=== PATIENT | male | born 1960 | race Two or more races ===

== ENCOUNTER 2019-03-26 13:47 | Emergency (ER) | payer MEDICAID ==
[2019-03-26] MEDS ORDERED: Ketorolac 60 MG/2 ML SDV IM ONE (14:37)
--- NOTE | 2019-03-26 15:27 | CR ---
EXAMINATION: Lumbar spine HISTORY: Pain COMPARISON: None TECHNIQUE: AP and lateral views FINDINGS: The lumbar spinal alignment is normal. Vertebral body heights and disc spaces appear well-maintained. SI joints are symmetric. Bone mineralization is normal. Mild vascular calcifications. IMPRESSION: 1. Minimal degenerative changes without acute findings.
--- NOTE | 2019-03-26 15:30 | CR ---
EXAMINATION: Right shoulder HISTORY: Pain COMPARISON: None TECHNIQUE: 3 views FINDINGS/IMPRESSION: There is no acute osseous abnormality, dislocation, or fracture. Bone mineralization is preserved. Moderate acromioclavicular and minimal glenohumeral osteoarthritic changes.
--- NOTE | 2019-03-26 16:06 | EDM.PDOC ---
ED HPI GENERAL MEDICAL PROBLEM - General Chief Complaint: Back Pain or Injury Stated Complaint: BACK AND SHOULDER PAIN Time Seen by Provider: 03/26/19 14:25 Source of Information: Reports: Patient History Limitations: Reports: No Limitations - History of Present Illness INITIAL COMMENTS - FREE TEXT/NARRATIVE: Since to the ER reporting chronic back pain. The patient states that about 3 months ago he fell and sustained a head injury, some back pain and shoulder pain. He was hospitalized for 3 days and discharged. He is scheduled to go to physical therapy on 04/21/2019. Now he has some back pain but he does not see anyone in primary care and is wondering about his shoulder and his leg and his trigger finger and so forth. We will check out his low back and shoulder today. right shoulder Pain Score (Numeric/FACES): 4 - Related Data Allergies Allergy/AdvReac Type Severity Reaction Status Date / Time No Known Allergies Allergy Verified 03/26/19 13:59 Home Meds: Home Meds Cyclobenzaprine [Flexeril] 1 tab PO TID PRN #20 tab 03/26/19 [Rx] Diclofenac Sodium [Voltaren] 75 mg PO BIDMEALS PRN #20 tab.ec 03/26/19 [Rx] Dizziness Medication 1 tab PO DAILY 03/26/19 [History] metFORMIN HCl [Metformin HCl] 1,000 mg PO BID 03/26/19 [History] Past Medical History HEENT History: Reports: None Cardiovascular History: Reports: None Respiratory History: Reports: None Gastrointestinal History: Reports: None Genitourinary History: Reports: None Musculoskeletal History: Reports: None Neurological History: Reports: None Psychiatric History: Reports: None Endocrine/Metabolic History: Reports: None Hematologic History: Reports: None Immunologic History: Reports: None Oncologic (Cancer) History: Reports: None Dermatologic History: Reports: None - Past Surgical History Head Surgeries/Procedures: Reports: None Cardiovascular Surgical History: Reports: None Respiratory Surgical History: Reports: None GI Surgical History: Reports: None Male Surgical History: Reports: None Endocrine Surgical History: Reports: None Neurological Surgical History: Reports: None Musculoskeletal Surgical History: Reports: None Oncologic Surgical History: Reports: None Dermatological Surgical History: Reports: None Social & Family History - Family History Family Medical History: Noncontributory - Tobacco Use Smoking Status *Q: Never Smoker Second Hand Smoke Exposure: No - Caffeine Use Caffeine Use: Reports: None - Recreational Drug Use Recreational Drug Use: No ED ROS GENERAL - Review of Systems Review Of Systems: See Below Constitutional: Reports: No Symptoms. Denies: Fever, Chills HEENT: Reports: No Symptoms Respiratory: Reports: No Symptoms Cardiovascular: Reports: No Symptoms Endocrine: Reports: No Symptoms GI/Abdominal: Reports: No Symptoms : Reports: Other (No bowel or bladder incontinence) Musculoskeletal: Reports: No Symptoms Skin: Reports: No Symptoms Neurological: Reports: No Symptoms Psychiatric: Reports: No Symptoms Hematologic/Lymphatic: Reports: No Symptoms Immunologic: Reports: No Symptoms ED EXAM,LOWER BACK PAIN/INJURY - Physical Exam Exam: See Below General Appearance: Alert, No Apparent Distress, Other (Uncomfortable sitting, is walking around in the exam room) Ears: Normal External Exam Nose: Normal Inspection Throat/Mouth: Normal Inspection Head: Atraumatic, Normocephalic Neck: Normal Inspection Respiratory/Chest: No Respiratory Distress, Lungs Clear, Normal Breath Sounds Cardiovascular: Normal Peripheral Pulses, Regular Rate, Rhythm, No Murmur GI/Abdominal: Soft Back Exam: Normal Inspection, Muscle Spasm (Across lower back with tenderness to palpation) Extremities: Normal Inspection, Normal Range of Motion Neurological: Alert, Normal Mood/Affect Psychiatric: Normal Affect, Normal Mood Skin Exam: Warm, Dry, Intact, Normal Color, No Rash Lymphatic: No Adenopathy Course - Vital Signs Last Recorded V/S: Last Vital Signs Temp 35.6 C 03/26/19 14:00 Pulse 88 03/26/19 14:00 Resp 18 03/26/19 14:00 BP 158/101 H 03/26/19 14:00 Pulse Ox 98 03/26/19 14:00 - Orders/Labs/Meds Meds: Medications Discontinued Medications Generic Name Dose Route Start Last Admin Trade Name Freq PRN Reason Stop Dose Admin Ketorolac Tromethamine 60 mg 03/26/19 14:37 03/26/19 15:12 Toradol IM 03/26/19 14:38 60 mg ONETIME ONE Administration Departure - Departure Time of Disposition: 16:06 Disposition: Home, Self-Care 01 Condition: Good Clinical Impression: Arthritis, Muscle spasm - Discharge Information Instructions: Musculoskeletal Pain, Chronic Back Pain, [id number] Forms: ED Department Discharge Additional Instructions: 1. Please make an appointment in primary care to discuss your chronic medical problems 2. Muscle relaxant (Cyclobenzaprine) every 8 hours as needed. No driving or operating machinery. 3. Diclofenac every 12 hours as needed for pain.
== END 2019-03-26 16:30 | disposition home or self-care (01) ==
LOC: MW.ED 13:47
DX: M62.830 Muscle spasm of back (principal); M19.011 Primary osteoarthritis, right shoulder
CPT/HCPCS: 72100; 73030; 96372; 99283; J1885

== ENCOUNTER 2019-07-19 15:54 | Emergency (ER) | payer MEDICAID ==
[2019-07-19] MEDS ORDERED: Ketorolac 60 MG/2 ML SDV IM ONE (18:08)
--- NOTE | 2019-07-19 18:08 | EDM.PDOC ---
ED HPI GENERAL MEDICAL PROBLEM - General Chief Complaint: Upper Extremity Injury/Pain Stated Complaint: INJURED HAND Time Seen by Provider: 07/19/19 17:04 Source of Information: Reports: Patient History Limitations: Reports: No Limitations - History of Present Illness INITIAL COMMENTS - FREE TEXT/NARRATIVE: HISTORY AND PHYSICAL: History of present illness: Patient is a 58-year-old male who presents to the ED today for concern of the surgical incision being painful. Patient states on 07/04/2019 he had a laceration of his finger on his right hand which required a tendon to be repaired. Patient states he had surgery done by Dr. James hand specialist at [facility] in [place], in order to repair the tendon. Patient states following the surgery he had an issue with infection of the surgery site and was admitted to the hospital at [facility] for 5 days. Patient states he is unsure when he was discharged but he followed up [address] James who thought the wound was looking better and instructed patient to continue to use packing. Patient states he's also been using alcohol and hydrogen peroxide inside the packing wound. Patient states he is taking antibiotics still and does his own packing/ repacking of the wound by himself as instructed by Dr. James. Patient states that when he saw the hand specialist he did not have much pain over the past couple days has had increased throbbing sensation of the packing area. Patient denies any other symptoms or concerns at this time. Patient denies fever, chills, chest pain, shortness of breath, or cough. Denies headache, neck stiff ness, change in vision, syncope, or near syncope. Denies nausea, vomiting, abdominal pain, diarrhea, constipation, or dysuria. Has not noted any blood in urine or stool. Patient has been eating and drinking appropriately. Review of systems: As per history of present illness and below otherwise all systems reviewed and negative. Past medical history: As per history of present illness and as reviewed below otherwise noncontributory. Surgical history: As per history of present illness and as reviewed below otherwise noncontributory. Social history: See social history for further information Family history: As per history of present illness and as reviewed below otherwise noncontributory. Physical exam: General: Patient is alert, oriented, and in no acute distress. Patient sitting comfortably on exam table. HEENT: Atraumatic, normocephalic, pupils equal and reactive bilaterally, negative for conjunctival pallor or scleral icterus, mucous membranes moist, TMs normal bilaterally, throat clear, neck supple, nontender, trachea midline. No drooling or trismus noted. No meningeal signs. No hot potato voice noted. Lungs: Clear to auscultation, breath sounds equal bilaterally, chest nontender. Heart: S1S2, regular rate and rhythm without overt murmur Abdomen: Soft, nondistended, nontender. Negative for masses or hepatosplenomegaly. Negative for costovertebral tenderness. Pelvis: Stable nontender. Genitourinary: Deferred. Rectal: Deferred. Skin: Intact, warm, dry. No lesions or rashes noted. Extremities: Negative for cords or calf pain. Neurovascular unremarkable. There is a 3-4 cm incision of the volar third digit of the right hand which does have suturing at the most proximal and most distal area of the incision. The central area of the incision is open and packed. There is no erythema of this area for drainage from the wound. There is white granulation tissue surrounding the central area that is open and packed. Patient has full range of motion of the complete hand and wrist without pain or difficulty. Radial pulses grossly intact with capillary refill less than 2 seconds. Neuro: Awake, alert, oriented. Cranial nerves II through XII unremarkable. Cerebellum unremarkable. Motor and sensory unremarkable throughout. Exam nonfocal. Notes: Dr. Sanchez verbally involved in patient care. Voices understanding and is agreeable to plan of care. Denies any further questions or concerns at this time. Diagnostics: CBC, Hand XR Therapeutics: Toradol Prescription: None Impression: Post operational pain management Medical screening exam Plan: 1. Follow up with Dr. James as scheduled and as discussed. Continue to take antibiotics that have been prescribed to you. 2. You can alternate ibuprofen and Tylenol as directed for pain and discomfort. 3. Return to the ED as needed and as discussed. Definitive disposition and diagnosis as appropriate pending reevaluation and review of above. Right Finger-Middle Pain Score (Numeric/FACES): 3 - Related Data Allergies Allergy/AdvReac Type Severity Reaction Status Date / Time No Known Allergies Allergy Verified 07/19/19 16:46 Home Meds: Home Meds . [Unable to Verify Home Med List] 07/19/19 [History] Past Medical History HEENT History: Reports: None Cardiovascular History: Reports: None Respiratory History: Reports: None Gastrointestinal History: Reports: None Genitourinary History: Reports: None Musculoskeletal History: Reports: None Neurological History: Reports: None Psychiatric History: Reports: None Endocrine/Metabolic History: Reports: None Hematologic History: Reports: None Immunologic History: Reports: None Oncologic (Cancer) History: Reports: None Dermatologic History: Reports: None - Past Surgical History Head Surgeries/Procedures: Reports: None Cardiovascular Surgical History: Reports: None Respiratory Surgical History: Reports: None GI Surgical History: Reports: None Male Surgical History: Reports: None Endocrine Surgical History: Reports: None Neurological Surgical History: Reports: None Musculoskeletal Surgical History: Reports: Other (See Below) Other Musculoskeletal Surgeries/Procedures:: right hand surgery Oncologic Surgical History: Reports: None Dermatological Surgical History: Reports: None Social & Family History - Family History Family Medical History: Noncontributory - Tobacco Use Smoking Status *Q: Never Smoker - Caffeine Use Caffeine Use: Reports: None - Recreational Drug Use Recreational Drug Use: No Review of Systems - Review of Systems Review Of Systems: ROS reveals no pertinent complaints other than HPI. ED EXAM, GENERAL - Physical Exam Exam: See Below (See dictation) Course - Vital Signs Last Recorded V/S: Last Vital Signs Temp Pulse 105 H 07/19/19 16:58 Resp BP 157/104 H 07/19/19 16:58 Pulse Ox 96 07/19/19 16:58 - Orders/Labs/Meds Labs: Laboratory Tests 07/19/19 Range/Units 17:48 WBC 8.98 (4.0-11.0) K/uL RBC 5.11 (4.50-5.90) M/uL Hgb 15.9 (13.0-17.0) g/dL Hct 44.3 (38.0-50.0) % MCV 86.7 (80.0-98.0) fL MCH 31.1 (27.0-32.0) pg MCHC 35.9 (31.0-37.0) g/dL RDW Std Deviation 40.3 (28.0-62.0) fl RDW Coeff of Talon 13 (11.0-15.0) % Plt Count 180 (150-400) K/uL MPV 10.30 (7.40-12.00) fL Neut % (Auto) 66.2 (48.0-80.0) % Lymph % (Auto) 23.2 (16.0-40.0) % [place] % (Auto) 8.7 (0.0-15.0) % Eos % (Auto) 1.3 (0.0-7.0) % Baso % (Auto) 0.6 (0.0-1.5) % Neut # (Auto) 6.0 H (1.4-5.7) K/uL Lymph # (Auto) 2.1 (0.6-2.4) K/uL [place] # (Auto) 0.8 (0.0-0.8) K/uL Eos # (Auto) 0.1 (0.0-0.7) K/uL Baso # (Auto) 0.1 (0.0-0.1) K/uL Nucleated RBC % 0.0 /100WBC Nucleated RBCs # 0 K/uL Meds: Medications Discontinued Medications Generic Name Dose Route Start Last Admin Trade Name Freq PRN Reason Stop Dose Admin Ketorolac Tromethamine 60 mg 07/19/19 18:08 07/19/19 18:42 Toradol IM 07/19/19 18:09 60 mg ONETIME ONE Administration Departure - Departure Time of Disposition: 19:09 Disposition: Home, Self-Care 01 Clinical Impression: Post-op pain, Encounter for medical screening examination - Discharge Information Referrals: PCP,None [Primary Care Provider] - Forms: ED Department Discharge Additional Instructions: The following information is given to patients seen in the emergency department who are being discharged to home. This information is to outline your options for follow-up care. We provide all patients seen in our emergency department with a follow-up referral. The need for follow-up, as well as the timing and circumstances, are variable depending upon the specifics of your emergency department visit. If you don't have a primary care physician on staff, we will provide you with a referral. We always advise you to contact your personal physician following an emergency department visit to inform them of the circumstance of the visit and for follow-up with them and/or the need for any referrals to a consulting specialist. The emergency department will also refer you to a specialist when appropriate. This referral assures that you have the opportunity for follow-up care with a specialist. All of these measure are taken in an effort to provide you with optimal care, which includes your follow-up. Under all circumstances we always encourage you to contact your private physician who remains a resource for coordinating your care. When calling for follow-up care, please make the office aware that this follow-up is from your recent emergency room visit. If for any reason you are refused follow-up, please contact the [facility] Emergency Department at and asked to speak to the emergency department charge nurse. [facility] [address] [place] [address] [id number] [address] [facility], Hand and Wrist Surgery, Dr. James [address] [place] [address] [place] [address] PH: [phone] 1. Follow up with Dr. James as scheduled and as discussed. Continue to take antibiotics that have been prescribed to you. 2. You can alternate ibuprofen and Tylenol as directed for pain and discomfort. 3. Return to the ED as needed and as discussed.
--- NOTE | 2019-07-19 18:52 | CR ---
Indication: Third digit wound, rule out gas Technique: Three views of the right hand Comparison: None Findings/Impression: Focal defect is seen in the ventral skin of the 3rd digit at the level of the proximal MTP joint, consistent with laceration. There is mild underlying subcutaneous edema without any appreciable soft tissue emphysema. There is no fracture or osseous destruction. The joints are anatomically aligned. Dictated by Sunny Nix MD @ Jul 19 2019 6:51PM Signed by Dr. Sunny Nix @ Jul 19 2019 6:51PM
== END 2019-07-19 19:49 | disposition home or self-care (01) ==
LOC: MW.ED 15:54
DX: Z04.89 Encounter for examination and observation for other specified reasons (principal); G89.18 Other acute postprocedural pain
CPT/HCPCS: 36415; 73130; 85025; 96372; 99283; J1885

== ENCOUNTER 2019-10-17 14:21 | Emergency (ER) | payer MEDICAID ==
[2019-10-17] MEDS ORDERED: Ketorolac 30 MG/ML SDV IVPUSH ONE (15:00)
[2019-10-17] MEDS ORDERED: Sodium Chloride 0.9% 1,000 ML IV ONE ×2 (15:00→15:37)
[2019-10-17 15:18] LABS: BLOOD UREA NITROGEN,BUN 14 mg/dL (7.0-18.0); CARBON DIOXIDE,CO2 27.5 mmol/L (21.0-32.0); CHLORIDE,CL 97 mmol/L (98-107); GLUCOSE RANDOM 429 mg/dL (74-106); POTASSIUM,K 4.4 mmol/L (3.5-5.1); SODIUM,NA 134 mmol/L (136-148)
[2019-10-17] MEDS ORDERED: Insulin Regular, Human 100 Units/ML 10 ML Vial IVPUSH ONE (15:38)
--- NOTE | 2019-10-17 15:53 | CR ---
Chest: Portable view of the chest was obtained. Comparison: No prior chest x-ray. Heart size and mediastinum are normal. Slight atelectasis is seen off the left cardiac apex. Poor inspiratory study is noted. No acute parenchymal change is otherwise seen. Bony structures are grossly intact. Impression: 1. Poor inspiratory study. 2. Minimal atelectasis. 3. Nothing acute is seen. Diagnostic code #2 This report was dictated in Mountain Standard Time
--- NOTE | 2019-10-17 17:26 | EDM.PDOC ---
ED HPI GENERAL MEDICAL PROBLEM - General Chief Complaint: Chest Pain Stated Complaint: CHEST PAIN WHEN HE BREATHES Time Seen by Provider: 10/17/19 14:47 - History of Present Illness INITIAL COMMENTS - FREE TEXT/NARRATIVE: Left anterior chest wall pain with movement x3 days, denies any shortness of breath denies any nausea vomiting syncope patient denies any trauma pain is increased with movement of the chest change in body position and direct palpation. No change with inspiration and denies any nausea vomiting abdominal pain patient denies any syncope patient is [id number] diabetic but has not checked his blood sugar in days. Unsure of his compliance with medication he denies any other significant past medical history denies any leg swelling denies any history of DVT denies any cardiac history denies any fever chills productive cough patient denies smoking or alcohol abuse pain is fully reproducible with range of motion and movement of the left arm. And patient denies any headache visual disturbance headache or stiff neck left chest Pain Score (Numeric/FACES): 6 - Related Data Allergies Allergy/AdvReac Type Severity Reaction Status Date / Time No Known Allergies Allergy Verified 10/17/19 14:29 Home Meds: Home Meds Ibuprofen [Motrin] 600 mg PO Q8H PRN 7 Days #21 tab 10/17/19 [Rx] levETIRAcetam [Keppra] 500 mg PO BID 10/17/19 [History] metFORMIN [Glucophage XR] 1,000 mg PO BID 10/17/19 [History] Past Medical History HEENT History: Reports: None Cardiovascular History: Reports: None Respiratory History: Reports: None Gastrointestinal History: Reports: None Genitourinary History: Reports: None Musculoskeletal History: Reports: None Neurological History: Reports: Other (See Below) Other Neuro History: possible seizure Psychiatric History: Reports: None Endocrine/Metabolic History: Reports: Diabetes, Type II Hematologic History: Reports: None Immunologic History: Reports: None Oncologic (Cancer) History: Reports: None Dermatologic History: Reports: Psoriasis - Past Surgical History Head Surgeries/Procedures: Reports: None Cardiovascular Surgical History: Reports: None Respiratory Surgical History: Reports: None GI Surgical History: Reports: None Male Surgical History: Reports: None Endocrine Surgical History: Reports: None Neurological Surgical History: Reports: None Musculoskeletal Surgical History: Reports: Other (See Below) Other Musculoskeletal Surgeries/Procedures:: right hand surgery Oncologic Surgical History: Reports: None Dermatological Surgical History: Reports: None Social & Family History - Family History Family Medical History: Noncontributory - Tobacco Use Smoking Status *Q: Never Smoker - Caffeine Use Caffeine Use: Reports: None - Recreational Drug Use Recreational Drug Use: No ED ROS GENERAL - Review of Systems Review Of Systems: Comprehensive ROS is negative, except as noted in HPI. Constitutional: Reports: No Symptoms HEENT: Reports: No Symptoms Respiratory: Reports: No Symptoms Cardiovascular: Reports: Chest Pain GI/Abdominal: Reports: No Symptoms, Other (Good appetite with out abdominal pain ). Denies: Abdominal Pain Musculoskeletal: Reports: No Symptoms Skin: Reports: No Symptoms Neurological: Reports: No Symptoms Psychiatric: Reports: No Symptoms ED EXAM, GENERAL - Physical Exam Exam: See Below Exam Limited By: No Limitations General Appearance: Alert, WD/WN, No Apparent Distress Ears: Normal External Exam, Normal Canal, Hearing Grossly Normal, Normal TMs Ear Exam: Bilateral Ear: Auricle Normal, Canal Normal, TM normal Nose: Normal Inspection, Normal Mucosa, No Blood Throat/Mouth: Normal Inspection, Normal Lips, Normal Teeth, Normal Gums, Normal Oropharynx, Normal Voice, No Airway Compromise Head: Atraumatic, Normocephalic Neck: Normal Inspection, Supple, Non-Tender, Full Range of Motion Respiratory/Chest: No Respiratory Distress, Lungs Clear, Normal Breath Sounds, No Accessory Muscle Use, Other (Chest wall tenderness left anterior chest reproducing the pain) Cardiovascular: Normal Peripheral Pulses, Regular Rate, Rhythm, No Edema, No Gallop, No JVD, No Murmur, No Rub GI/Abdominal: Normal Bowel Sounds, Soft, Non-Tender, No Organomegaly, No Distention, No Abnormal Bruit, No Mass Back Exam: Normal Inspection, Full Range of Motion, NT Extremities: Normal Inspection, Normal Range of Motion, Non-Tender, Normal Capillary Refill, No Pedal Edema Neurological: Alert, Oriented, CN II-XII Intact, Normal Cognition, Normal Gait, Normal Reflexes, No Motor/Sensory Deficits Psychiatric: Normal Affect, Normal Mood Skin Exam: Warm, Dry, Intact, Normal Color, No Rash Lymphatic: No Adenopathy EKG INTERPRETATION EKG Date: 10/17/19 Rhythm: NSR Rate (Beats/Min): 96 [place]: Normal P-Wave: Present QRS: Normal ST-T: Normal Course - Vital Signs Last Recorded V/S: Last Vital Signs Temp 97.5 F 10/17/19 14:24 Pulse 109 H 10/17/19 14:24 Resp 18 10/17/19 14:24 BP 167/106 H 10/17/19 14:24 Pulse Ox 96 10/17/19 14:24 - Orders/Labs/Meds Orders: Active Orders 24 hr Category Date Time Status EKG Documentation Completion [RC] STAT Care 10/17/19 14:45 Active Labs: Laboratory Tests 10/17/19 10/17/19 10/17/19 Range/Units 14:34 14:34 16:50 WBC 6.85 (4.0-11.0) K/uL RBC 5.66 (4.50-5.90) M/uL Hgb 17.6 H (13.0-17.0) g/dL Hct 48.6 (38.0-50.0) % MCV 85.9 (80.0-98.0) fL MCH 31.1 (27.0-32.0) pg MCHC 36.2 (31.0-37.0) g/dL RDW Std Deviation 39.3 (28.0-62.0) fl RDW Coeff of Talon 13 (11.0-15.0) % Plt Count 192 (150-400) K/uL MPV 10.80 (7.40-12.00) fL Neut % (Auto) 58.4 (48.0-80.0) % Lymph % (Auto) 26.3 (16.0-40.0) % [place] % (Auto) 11.7 (0.0-15.0) % Eos % (Auto) 3.2 (0.0-7.0) % Baso % (Auto) 0.4 (0.0-1.5) % Neut # (Auto) 4.0 (1.4-5.7) K/uL Lymph # (Auto) 1.8 (0.6-2.4) K/uL [place] # (Auto) 0.8 (0.0-0.8) K/uL Eos # (Auto) 0.2 (0.0-0.7) K/uL Baso # (Auto) 0.0 (0.0-0.1) K/uL Nucleated RBC % 0.0 /100WBC Nucleated RBCs # 0 K/uL Sodium 134 L (136-148) mmol/L Potassium 4.4 (3.5-5.1) mmol/L Chloride 97 L (98-107) mmol/L Carbon Dioxide 27.5 (21.0-32.0) mmol/L BUN 14 (7.0-18.0) mg/dL Creatinine 1.0 (0.8-1.3) mg/dL Est Cr Clr Drug Dosing 67.42 mL/min Estimated GFR (MDRD) > 60.0 ml/min Glucose 429 H (74-106) mg/dL POC Glucose 316 H (60-110) mg/dL Calcium 9.3 (8.5-10.1) mg/dL Total Bilirubin 0.5 (0.2-1.0) mg/dL AST 23 (15-37) IU/L ALT 33 (14-63) IU/L Alkaline Phosphatase 119 H (46-116) U/L Troponin I < 0.050 (0.000-0.056) ng/mL Total Protein 8.2 (6.4-8.2) g/dL Albumin 4.0 (3.4-5.0) g/dL Globulin 4.2 H (2.6-4.0) g/dL Albumin/Globulin Ratio 1.0 (0.9-1.6) Meds: Medications Discontinued Medications Generic Name Dose Route Start Last Admin Trade Name Freq PRN Reason Stop Dose Admin Sodium Chloride 1,000 mls @ 999 mls/hr 10/17/19 15:00 10/17/19 15:22 Normal Saline IV 10/17/19 16:00 999 mls/hr .Bolus ONE Administration Sodium Chloride 1,000 mls @ 999 mls/hr 10/17/19 15:37 10/17/19 16:18 Normal Saline IV 10/17/19 16:37 999 mls/hr .Bolus ONE Administration Insulin Human Regular 8 unit 10/17/19 15:38 10/17/19 16:10 Novolin R IVPUSH 10/17/19 15:39 8 unit ONETIME ONE Administration Protocol Ketorolac Tromethamine 30 mg 10/17/19 15:00 10/17/19 15:22 Toradol IVPUSH 10/17/19 15:01 30 mg ONETIME ONE Administration Departure - Departure Time of Disposition: 17:27 Disposition: Home, Self-Care 01 Condition: Good Clinical Impression: Chest wall pain, Hyperglycemia Instructions: Hyperglycemia, [id number], Chest Wall Pain, [id number] Referrals: PCP,None [Primary Care Provider] - Sepsis Event Note - Evaluation Sepsis Screening Result: No Definite Risk - Focused Exam Vital Signs: Vital Signs Temp Pulse Resp BP Pulse Ox 10/17/19 14:24 97.5 F 109 H 18 167/106 H 96 Date Exam was Performed: 10/17/19 Time Exam was Performed: 17:21
== END 2019-10-17 17:41 | disposition home or self-care (01) ==
LOC: MW.ED 14:21
DX: E11.65 Type 2 diabetes mellitus with hyperglycemia (principal); R07.89 Other chest pain
CPT/HCPCS: 36415; 71045; 80053; 82962; 84484; 85025; 93005; 96361; 96374; 99285; J1885; J7030; J1815-GY

== ENCOUNTER 2020-04-30 21:01 | Emergency (ER) | payer MEDICAID ==
[2020-04-30 22:46] LABS: BLOOD UREA NITROGEN,BUN 15 mg/dL (7.0-18.0); CARBON DIOXIDE,CO2 21.7 mmol/L (21.0-32.0); CHLORIDE,CL 98 mmol/L (98-107); GLUCOSE RANDOM 171 mg/dL (74-106); POTASSIUM,K 3.5 mmol/L (3.5-5.1); SODIUM,NA 132 mmol/L (136-148)
--- NOTE | 2020-04-30 22:56 | EDM.PDOC ---
ED HPI GENERAL MEDICAL PROBLEM - General Chief Complaint: General Stated Complaint: FEVER Time Seen by Provider: 04/30/20 21:57 Source of Information: Reports: Patient History Limitations: Reports: No Limitations - History of Present Illness INITIAL COMMENTS - FREE TEXT/NARRATIVE: 59M presents for subjective fever, body aches, non-prod cough, and CP over last several days. Poor historian. Decreased PO. No N/V. No abdominal pain, dysuria, hematuria everywhere Pain Score (Numeric/FACES): 10 - Related Data Allergies Allergy/AdvReac Type Severity Reaction Status Date / Time No Known Allergies Allergy Verified 04/30/20 21:59 Home Meds: Home Meds Ibuprofen [Motrin] 600 mg PO Q8H PRN 7 Days #21 tab 10/17/19 [Rx] levETIRAcetam [Keppra] 500 mg PO BID 10/17/19 [History] metFORMIN [Glucophage XR] 1,000 mg PO BID 10/17/19 [History] Past Medical History HEENT History: Reports: None Cardiovascular History: Reports: None Respiratory History: Reports: None Gastrointestinal History: Reports: None Genitourinary History: Reports: None Musculoskeletal History: Reports: None Neurological History: Reports: Other (See Below) Other Neuro History: possible seizure Psychiatric History: Reports: None Endocrine/Metabolic History: Reports: Diabetes, Type II Hematologic History: Reports: None Immunologic History: Reports: None Oncologic (Cancer) History: Reports: None Dermatologic History: Reports: Psoriasis - Past Surgical History Head Surgeries/Procedures: Reports: None Cardiovascular Surgical History: Reports: None Respiratory Surgical History: Reports: None GI Surgical History: Reports: None Male Surgical History: Reports: None Endocrine Surgical History: Reports: None Neurological Surgical History: Reports: None Musculoskeletal Surgical History: Reports: Other (See Below) Other Musculoskeletal Surgeries/Procedures:: right hand surgery Oncologic Surgical History: Reports: None Dermatological Surgical History: Reports: None Social & Family History - Family History Family Medical History: Noncontributory - Tobacco Use Smoking Status *Q: Unknown Ever Smoked - Caffeine Use Caffeine Use: Reports: None ED ROS GENERAL - Review of Systems Review Of Systems: Comprehensive ROS is negative, except as noted in HPI. ED EXAM, GENERAL - Physical Exam Exam: See Below Exam Limited By: No Limitations General Appearance: Alert, WD/WN, No Apparent Distress Throat/Mouth: Normal Inspection Head: Atraumatic Respiratory/Chest: No Respiratory Distress, Lungs Clear, Normal Breath Sounds, No Accessory Muscle Use Cardiovascular: Normal Peripheral Pulses, No Edema, Tachycardia GI/Abdominal: Soft, Non-Tender Neurological: Alert, Oriented Psychiatric: Normal Affect Skin Exam: Warm EKG INTERPRETATION EKG Date: 04/30/20 Time: 22:45 Rhythm: NSR Rate (Beats/Min): 109 [place]: Normal P-Wave: Present QRS: Normal ST-T: Normal Course - Vital Signs Last Recorded V/S: Last Vital Signs Temp 102.5 F H 05/01/20 01:07 Pulse 119 H 04/30/20 21:57 Resp 20 04/30/20 21:57 BP 163/112 H 04/30/20 21:57 Pulse Ox 97 04/30/20 21:57 - Orders/Labs/Meds Orders: Active Orders 24 hr Category Date Time Status EKG Documentation Completion [RC] STAT Care 04/30/20 22:22 Active Labs: Laboratory Tests 04/30/20 04/30/20 04/30/20 Range/Units 22:10 22:20 22:20 WBC 7.36 (4.0-11.0) K/uL RBC 4.77 (4.50-5.90) M/uL Hgb 14.8 (13.0-17.0) g/dL Hct 42.5 (38.0-50.0) % MCV 89.1 (80.0-98.0) fL MCH 31.0 (27.0-32.0) pg MCHC 34.8 (31.0-37.0) g/dL RDW Std Deviation 40.2 (28.0-62.0) fl RDW Coeff of Tal[place] 12 (11.0-15.0) % Plt Count 181 (150-400) K/uL MPV 9.90 (7.40-12.00) fL Neut % (Auto) 75.4 (48.0-80.0) % Lymph % (Auto) 14.0 L (16.0-40.0) % [place] % (Auto) 10.5 (0.0-15.0) % Eos % (Auto) 0.0 (0.0-7.0) % Baso % (Auto) 0.1 (0.0-1.5) % Neut # (Auto) 5.6 (1.4-5.7) K/uL Lymph # (Auto) 1.0 (0.6-2.4) K/uL [place] # (Auto) 0.8 (0.0-0.8) K/uL Eos # (Auto) 0.0 (0.0-0.7) K/uL Baso # (Auto) 0.0 (0.0-0.1) K/uL Nucleated RBC % 0.0 /100WBC Nucleated RBCs # 0 K/uL Lactate (0.20-2.00) mmol/L Sodium 132 L (136-148) mmol/L Potassium 3.5 (3.5-5.1) mmol/L Chloride 98 (98-107) mmol/L Carbon Dioxide 21.7 (21.0-32.0) mmol/L BUN 15 (7.0-18.0) mg/dL Creatinine 0.9 (0.8-1.3) mg/dL Est Cr Clr Drug Dosing 74.91 mL/min Estimated GFR (MDRD) > 60.0 ml/min Glucose 171 H (74-106) mg/dL Calcium 8.3 L (8.5-10.1) mg/dL Total Bilirubin 0.4 (0.2-1.0) mg/dL AST 41 H (15-37) IU/L ALT 43 (14-63) IU/L Alkaline Phosphatase 105 (46-116) U/L Troponin I (0.000-0.056) ng/mL Total Protein 8.0 (6.4-8.2) g/dL Albumin 3.9 (3.4-5.0) g/dL Globulin 4.1 H (2.6-4.0) g/dL Albumin/Globulin Ratio 1.0 (0.9-1.6) Urine Color YELLOW Urine Appearance CLEAR Urine pH 6.0 (5.0-8.0) Ur Specific [place] 1.025 (1.001-1.035) Urine Protein NEGATIVE (NEGATIVE) mg/dL Urine Glucose (UA) 100 H (NEGATIVE) mg/dL Urine Ketones 40 H (NEGATIVE) mg/dL Urine Occult Blood NEGATIVE (NEGATIVE) Urine Nitrite NEGATIVE (NEGATIVE) Urine Bilirubin NEGATIVE (NEGATIVE) Urine Urobilinogen 2.0 H (<2.0) EU/dL Ur Leukocyte Esterase NEGATIVE (NEGATIVE) COVID-19 ([facility]) (NEGATIVE) 04/30/20 04/30/20 04/30/20 Range/Units 22:58 22:58 23:36 WBC (4.0-11.0) K/uL RBC (4.50-5.90) M/uL Hgb (13.0-17.0) g/dL Hct (38.0-50.0) % MCV (80.0-98.0) fL MCH (27.0-32.0) pg MCHC (31.0-37.0) g/dL RDW Std Deviation (28.0-62.0) fl RDW Coeff of [place] (11.0-15.0) % Plt Count (150-400) K/uL MPV (7.40-12.00) fL Neut % (Auto) (48.0-80.0) % Lymph % (Auto) (16.0-40.0) % [place] % (Auto) (0.0-15.0) % Eos % (Auto) (0.0-7.0) % Baso % (Auto) (0.0-1.5) % Neut # (Auto) (1.4-5.7) K/uL Lymph # (Auto) (0.6-2.4) K/uL [place] # (Auto) (0.0-0.8) K/uL Eos # (Auto) (0.0-0.7) K/uL Baso # (Auto) (0.0-0.1) K/uL Nucleated RBC % /100WBC Nucleated RBCs # K/uL Lactate 1.2 (0.20-2.00) mmol/L Sodium (136-148) mmol/L Potassium (3.5-5.1) mmol/L Chloride (98-107) mmol/L Carbon Dioxide (21.0-32.0) mmol/L BUN (7.0-18.0) mg/dL Creatinine (0.8-1.3) mg/dL Est Cr Clr Drug Dosing mL/min Estimated GFR (MDRD) ml/min Glucose (74-106) mg/dL Calcium (8.5-10.1) mg/dL Total Bilirubin (0.2-1.0) mg/dL AST (15-37) IU/L ALT (14-63) IU/L Alkaline Phosphatase (46-116) U/L Troponin I < 0.050 (0.000-0.056) ng/mL Total Protein (6.4-8.2) g/dL Albumin (3.4-5.0) g/dL Globulin (2.6-4.0) g/dL Albumin/Globulin Ratio (0.9-1.6) Urine Color Urine Appearance Urine pH (5.0-8.0) Ur Specific [place] (1.001-1.035) Urine Protein (NEGATIVE) mg/dL Urine Glucose (UA) (NEGATIVE) mg/dL Urine Ketones (NEGATIVE) mg/dL Urine Occult Blood (NEGATIVE) Urine Nitrite (NEGATIVE) Urine Bilirubin (NEGATIVE) Urine Urobilinogen (<2.0) EU/dL Ur Leukocyte Esterase (NEGATIVE) COVID-19 ([place]) POSITIVE H (NEGATIVE) Meds: Medications Discontinued Medications Generic Name Dose Route Start Last Admin Trade Name Freq PRN Reason Stop Dose Admin Acetaminophen 1,000 mg 05/01/20 00:56 05/01/20 01:07 Tylenol PO 05/01/20 00:57 1,000 mg NOW ONE Administration - Re-Assessments/Exams Free Text/Narrative Re-Assessment/Exam: 04/30/20 23:29 Patient presents with fever, cough, body aches suggestive of viral illness. Will get labs, UA, CXR and COVID testing. Free Text/Narrative Re-Assessment/Exam: 05/01/20 01:21 COVID test positive, labs otherwise grossly unremarkable. Patient otherwise w/ normal vitals aside from fever and normal CXR. Normal O2 sats. D/c'ed patient with pulse ox and instructions for f/u and ED return precautions. Patient understands plan .Discussed pros/cons decadron but given poorly controlled DM2 will defer. Departure - Departure Time of Disposition: 00:34 Disposition: Home, Self-Care 01 Condition: Fair Clinical Impression: COVID-19 - Discharge Information *PRESCRIPTION DRUG MONITORING PROGRAM REVIEWED*: No *COPY OF PRESCRIPTION DRUG MONITORING REPORT IN PATIENT TE: No Instructions: COVID-19 Frequently Asked Questions, COVID-19, Prevent the Spread of COVID-19 if You Are Sick - [facility] Referrals: [facility] [Ordering Only Provider] - James Quezada MD [Primary Care Provider] - Forms: ED Department Discharge Additional Instructions: The following information is given to patients seen in the emergency department who are being discharged to home. This information is to outline your options for follow-up care. We provide all patients seen in our emergency department with a follow-up referral. The need for follow-up, as well as the timing and circumstances, are variable depending upon the specifics of your emergency department visit. If you don't have a primary care physician on staff, we will provide you with a referral. We always advise you to contact your personal physician following an emergency department visit to inform them of the circumstance of the visit and for follow-up with them and/or the need for any referrals to a consulting specialist. The emergency department will also refer you to a specialist when appropriate. This referral assures that you have the opportunity for follow-up care with a specialist. All of these measure are taken in an effort to provide you with optimal care, which includes your follow-up. Under all circumstances we always encourage you to contact your private physician who remains a resource for coordinating your care. When calling for follow-up care, please make the office aware that this follow-up is from your recent emergency room visit. If for any reason you are refused follow-up, please contact the [facility] Emergency Department at and asked to speak to the emergency department charge nurse. Sepsis Event Note (ED) - Evaluation Sepsis Screening Result: Possible Sepsis Risk - Focused Exam Vital Signs: Vital Signs Temp Temp Pulse Resp BP Pulse Ox 05/01/20 01:07 102.5 F H 04/30/20 21:57 100.1 F 119 H 20 163/112 H 97 - My Orders Last 24 Hours: My Active Orders 04/30/20 22:22 EKG Documentation Completion [RC] STAT - Assessment/Plan Last 24 Hours: My Active Orders 04/30/20 22:22 EKG Documentation Completion [RC] STAT
--- NOTE | 2020-04-30 23:40 | CR ---
INDICATION: Fever of unknown origin TECHNIQUE: Chest radiograph 1 view COMPARISON: 10/17/2019 FINDINGS: Mediastinum: The mediastinum is normal in appearance. The heart silhouette is normal in size and morphology. Lung: Both lungs are unremarkable in appearance with small lung volumes. No sign of pleural effusion seen. No pneumothorax is identified. Bone and Soft tissue: Unremarkable for age. IMPRESSION: 1. No acute cardiopulmonary disease is seen. Dictated by: Jason Garduno MD @ 04/30/2020 23:38:25 (Electronically Signed)
[2020-05-01] MEDS ORDERED: Acetaminophen 325 MG Tab PO ONE (00:56)
== END 2020-05-01 03:45 | disposition home or self-care (01) ==
LOC: MW.ED 21:01
DX: U07.1 COVID-19 (principal); E11.9 Type 2 diabetes mellitus without complications; R00.0 Tachycardia, unspecified
CPT/HCPCS: 36415; 71045; 80053; 81003; 83605; 84484; 85025; 87635; 93005; 99284; A9270; U0002

== ENCOUNTER 2020-05-05 19:40 | Emergency (ER) | payer MEDICAID, OTHER ==
[2020-05-05] MEDS ORDERED: Sodium Chloride 0.9% 1,000 ML IV ONE (20:13)
[2020-05-05] MEDS ORDERED: Sodium Chloride 0.9% 2.5 ML Syringe FLUSH PRN (20:13)
[2020-05-05] MEDS ORDERED: Sodium Chloride 0.9% 10 ML Syringe FLUSH PRN (20:13)
--- NOTE | 2020-05-05 21:21 | CR ---
Chest: Frontal view of the chest was obtained. Comparison: Prior chest x-ray of 10/17/19. Findings: Diffuse parenchymal change is seen throughout both lungs. Heart size and mediastinum are normal. Bony structures are unremarkable. Impression: 1. Diffuse parenchymal change is seen throughout both lungs. Given the diffuse nature, findings most likely relate to viral pneumonia. Diagnostic code #5 Study was dictated in MDT
[2020-05-05 21:53] LABS: BLOOD UREA NITROGEN,BUN 9 mg/dL (7.0-18.0); CARBON DIOXIDE,CO2 24.6 mmol/L (21.0-32.0); CHLORIDE,CL 101 mmol/L (98-107); GLUCOSE RANDOM 205 mg/dL (74-106); LIPASE 66 U/L (73-393); SODIUM,NA 135 mmol/L (136-148)
[2020-05-05] MEDS ORDERED: Ibuprofen 600 MG Tab PO ONE (21:53)
[2020-05-05] MEDS ORDERED: Acetaminophen 325 MG Tab PO ONE (21:53)
[2020-05-05] MEDS ORDERED: cefTRIAXone 1 GM in Sodium Chloride 0.9% 50 ML IV ONE (21:54)
[2020-05-05] MEDS ORDERED: Ondansetron 4 MG/2 ML SDV IVPUSH ONE ×3 (21:54→23:21)
[2020-05-05] MEDS ORDERED: Azithromycin 500 MG in Sodium Chloride 0.9% 250 ML IV SCH (22:00)
[2020-05-05] MEDS ORDERED: cefTRIAXone 1 GM in Premix Bag 1 BAG IV ONE (22:15)
--- NOTE | 2020-05-06 00:09 | EDM.PDOC ---
ED HPI GENERAL MEDICAL PROBLEM - General Chief Complaint: Fever Stated Complaint: COUGHING, FEVER VOMITTING Time Seen by Provider: 05/05/20 20:03 - History of Present Illness INITIAL COMMENTS - FREE TEXT/NARRATIVE: HISTORY AND PHYSICAL: History of present illness: This is a 59-year-old gentleman with a history significant for hypertension and diabetes who presents ER today complaining of increased shortness of breath, green productive sputum, nausea and vomiting over the course of the last 2 to 3 days. Patient presented to [facility] 1 week ago and was diagnosed with coronavirus but at that time patient reports his symptoms were minor. Patient reports over the course of the last week he has been starting to feel worse with progressively increasing shortness of breath. Patient reports he is having fevers to 102.5 at home, nausea and vomiting x3 episodes today, no diarrhea, no dysuria frequency urgency, chest pain with deep inspiration and cough only, no hemoptysis, no melena or bright red blood per rectum, no hematemesis or coffee- ground emesis. Patient denies any liver, lung, kidney problems in the past. Patient denies any tobacco alcohol or drugs. Patient denies any prior surgeries. Patient has no known drug allergies. Review of systems: As per history of present illness and below otherwise all systems reviewed and negative. Past medical history: As per history of present illness and as reviewed below otherwise noncontributory. Surgical history: As per history of present illness and as reviewed below otherwise noncontributory. Social history: No reported history of drug or alcohol abuse. Family history: As per history of present illness and as reviewed below otherwise noncontributory. Physical exam: Constitutional: Patient is oriented to person, place, and time. Appears well-d eveloped and well-nourished. No distress. HEENT: Moist mucous membranes Head: Normocephalic and atraumatic Eyes: Right eye exhibits no discharge. Left eye exhibits no discharge. No scleral icterus. Bilateral conjunctival injection. Neck: Normal range of motion. No tracheal deviation present. Neck supple, no nuchal rigidity, no photophobia, no Kernig's sign or Brudzinski sign, patient does not present with signs or symptoms of be consistent with meningitis. Cardiovascular: Regular rate, tachycardic to 115 bpm Pulmonary: Tachypneic. No wheezing rales or rhonchi. Abdominal: No distention Musculoskeletal: Normal range of motion Neurologic: Alert and oriented to person, place and time. Skin: [place], warm and dry. Psychiatric: Normal mood and affect. Behavior is normal. Judgment and thought content normal. Nursing note and vital signs have been reviewed Diagnostics: Chest x-ray with bilateral increased interstitial markings consistent with viral pneumonia. No discrete consolidation identified. ABG consistent with significant respiratory alkalosis with hypoxemia. Lactic acid within normal limits. WBC within normal limits. Therapeutics: 2 L O2 nasal cannula administered Rocephin 1 g IV Zithromax 500 mg IV Assessment and plan: This is a 59-year-old gentleman with a recent diagnosis of coronavirus 1 week ago with progressive worsening in his symptoms. Patient presented to the ER today secondary to nausea and vomiting as well as increasing shortness of breath. Given patient's significant respiratory alkalosis with hypoxemia, the case was discussed with our hospitalist for admission. I have discussed the case with Dr. Cain who feels that the patient would likely need remdesivir as treatment for his hypoxemia. Since [facility] does not have access to remdesivir, he is recommending transfer to [facility] for definitive management of his coronavirus with hypoxemia. Case was discussed with Dr. Bullock at [facility] ER who is accepted the patient but has requested that we discussed the case with Dr. Gray to see if the hospitalist would be willing to accept the patient directly rather than going through the ED to minimize exposure. Case discussed with who is agreed to assist us with direct admission and inpatient management of this patient. All results of been discussed with the patient and he is amenable to transfer at this time. generalized Pain Score (Numeric/FACES): 8 - Related Data Allergies Allergy/AdvReac Type Severity Reaction Status Date / Time No Known Allergies Allergy Verified 05/05/20 20:04 Home Meds: Home Meds Ibuprofen [Motrin] 600 mg PO Q8H PRN 7 Days #21 tab 10/17/19 [Rx] levETIRAcetam [Keppra] 500 mg PO BID 10/17/19 [History] metFORMIN [Glucophage XR] 1,000 mg PO BID 10/17/19 [History] Past Medical History HEENT History: Reports: None Cardiovascular History: Reports: None Respiratory History: Reports: None Gastrointestinal History: Reports: None Genitourinary History: Reports: None Musculoskeletal History: Reports: None Neurological History: Reports: Other (See Below) Other Neuro History: possible seizure Psychiatric History: Reports: None Endocrine/Metabolic History: Reports: Diabetes, Type II Hematologic History: Reports: None Immunologic History: Reports: None Oncologic (Cancer) History: Reports: None Dermatologic History: Reports: Psoriasis - Infectious Disease History Infectious Disease History: Reports: None - Past Surgical History Head Surgeries/Procedures: Reports: None Cardiovascular Surgical History: Reports: None Respiratory Surgical History: Reports: None GI Surgical History: Reports: None Male Surgical History: Reports: None Endocrine Surgical History: Reports: None Neurological Surgical History: Reports: None Musculoskeletal Surgical History: Reports: Other (See Below) Other Musculoskeletal Surgeries/Procedures:: right hand surgery Oncologic Surgical History: Reports: None Dermatological Surgical History: Reports: None Social & Family History - Family History Family Medical History: Noncontributory - Tobacco Use Smoking Status *Q: Never Smoker - Caffeine Use Caffeine Use: Reports: None - Recreational Drug Use Recreational Drug Use: No ED ROS GENERAL - Review of Systems Review Of Systems: Comprehensive ROS is negative, except as noted in HPI. ED EXAM, GENERAL - Physical Exam Exam: See Below EKG INTERPRETATION EKG Interpretation Comments: EKG: Normal sinus rhythm heart rate of [address]-T wave abnormalities Normal axis No evidence of ST elevation MA As interpreted by ER physician: Javan Course - Vital Signs Last Recorded V/S: Last Vital Signs Temp 98.1 F 05/05/20 23:33 Pulse 81 05/06/20 01:00 Resp 24 H 05/06/20 01:00 BP 146/78 H 05/06/20 01:00 Pulse Ox 97 05/06/20 01:00 - Orders/Labs/Meds Orders: Active Orders 24 hr Category Date Time Status CULTURE BLOOD [BC] Stat Lab 05/05/20 20:35 Received CULTURE BLOOD [BC] Stat Lab 05/05/20 21:05 Results Blood Culture x2 Reflex Set [OM.PC] Stat Oth 05/05/20 20:13 Ordered Pulse Oximetry Continuous Monitoring [OM.PC] Routine Oth 05/05/20 20:13 Ordered Saline Lock Insert [OM.PC] Stat Oth 05/05/20 20:13 Ordered Severe Sepsis Onset Time [OM.PC] Stat Oth 05/05/20 20:13 Ordered Labs: Laboratory Tests 05/05/20 05/05/20 05/05/20 Range/Units 20:25 20:25 20:35 WBC 8.81 (4.0-11.0) K/uL RBC 4.91 (4.50-5.90) M/uL Hgb 15.2 (13.0-17.0) g/dL Hct 43.2 (38.0-50.0) % MCV 88.0 (80.0-98.0) fL MCH 31.0 (27.0-32.0) pg MCHC 35.2 (31.0-37.0) g/dL RDW Std Deviation 39.6 (28.0-62.0) fl RDW Coeff of [place] 12 (11.0-15.0) % Plt Count 206 (150-400) K/uL MPV 10.70 (7.40-12.00) fL Neut % (Auto) 86.8 H (48.0-80.0) % Lymph % (Auto) 7.4 L (16.0-40.0) % [place] % (Auto) 5.6 (0.0-15.0) % Eos % (Auto) 0.1 (0.0-7.0) % Baso % (Auto) 0.1 (0.0-1.5) % Neut # (Auto) 7.7 H (1.4-5.7) K/uL Lymph # (Auto) 0.7 (0.6-2.4) K/uL [place] # (Auto) 0.5 (0.0-0.8) K/uL Eos # (Auto) 0.0 (0.0-0.7) K/uL Baso # (Auto) 0.0 (0.0-0.1) K/uL Nucleated RBC % 0.0 /100WBC Nucleated RBCs # 0 K/uL ABG pH 7.503 H (7.35-7.45) ABG pCO2 27 L (35-45) mmHG ABG pO2 58 L (75-100) mmHG ABG HCO3 21 L (22-26) mEq/L ABG Total CO2 18.5 ABG Base Excess -0.3 (-2.0-2.0) Lactate (0.20-2.00) mmol/L Sodium (136-148) mmol/L Potassium (3.5-5.1) mmol/L Chloride (98-107) mmol/L Carbon Dioxide (21.0-32.0) mmol/L BUN (7.0-18.0) mg/dL Creatinine (0.8-1.3) mg/dL Est Cr Clr Drug Dosing mL/min Estimated GFR (MDRD) ml/min Glucose (74-106) mg/dL Calcium (8.5-10.1) mg/dL Total Bilirubin (0.2-1.0) mg/dL AST (15-37) IU/L ALT (14-63) IU/L Alkaline Phosphatase (46-116) U/L Troponin I (0.000-0.056) ng/mL C-Reactive Protein (0.00-0.90) mg/dL Total Protein (6.4-8.2) g/dL Albumin (3.4-5.0) g/dL Globulin (2.6-4.0) g/dL Albumin/Globulin Ratio (0.9-1.6) Lipase (73-393) U/L Urine Color YELLOW Urine Appearance CLEAR Urine pH 7.0 (5.0-8.0) Ur Specific [place] 1.025 (1.001-1.035) Urine Protein 100 H (NEGATIVE) mg/dL Urine Glucose (UA) 500 H (NEGATIVE) mg/dL Urine Ketones TRACE H (NEGATIVE) mg/dL Urine Occult Blood MODERATE H (NEGATIVE) Urine Nitrite NEGATIVE (NEGATIVE) Urine Bilirubin NEGATIVE (NEGATIVE) Urine Urobilinogen 1.0 (<2.0) EU/dL Ur Leukocyte Esterase NEGATIVE (NEGATIVE) Urine RBC 2-6 (0-2/HPF) Urine WBC 0-2 (0-5/HPF) Ur Epithelial Cells RARE (NONE-FEW) Urine Bacteria FEW (NEGATIVE) Urine Mucus LIGHT (NONE-MOD) 05/05/20 05/05/20 Range/Units 20:35 20:35 WBC (4.0-11.0) K/uL RBC (4.50-5.90) M/uL Hgb (13.0-17.0) g/dL Hct (38.0-50.0) % MCV (80.0-98.0) fL MCH (27.0-32.0) pg MCHC (31.0-37.0) g/dL RDW Std Deviation (28.0-62.0) fl RDW Coeff of [place] (11.0-15.0) % Plt Count (150-400) K/uL MPV (7.40-12.00) fL Neut % (Auto) (48.0-80.0) % Lymph % (Auto) (16.0-40.0) % [place] % (Auto) (0.0-15.0) % Eos % (Auto) (0.0-7.0) % Baso % (Auto) (0.0-1.5) % Neut # (Auto) (1.4-5.7) K/uL Lymph # (Auto) (0.6-2.4) K/uL [place] # (Auto) (0.0-0.8) K/uL Eos # (Auto) (0.0-0.7) K/uL Baso # (Auto) (0.0-0.1) K/uL Nucleated RBC % /100WBC Nucleated RBCs # K/uL ABG pH (7.35-7.45) ABG pCO2 (35-45) mmHG ABG pO2 (75-100) mmHG ABG HCO3 (22-26) mEq/L ABG Total CO2 ABG Base Excess (-2.0-2.0) Lactate 1.9 (0.20-2.00) mmol/L Sodium 135 L (136-148) mmol/L Potassium 4.0 (3.5-5.1) mmol/L Chloride 101 (98-107) mmol/L Carbon Dioxide 24.6 (21.0-32.0) mmol/L BUN 9 (7.0-18.0) mg/dL Creatinine 0.8 (0.8-1.3) mg/dL Est Cr Clr Drug Dosing 90.83 mL/min Estimated GFR (MDRD) > 60.0 ml/min Glucose 205 H (74-106) mg/dL Calcium 8.0 L (8.5-10.1) mg/dL Total Bilirubin 0.5 (0.2-1.0) mg/dL AST 34 (15-37) IU/L ALT 38 (14-63) IU/L Alkaline Phosphatase 89 (46-116) U/L Troponin I < 0.050 (0.000-0.056) ng/mL C-Reactive Protein 19.00 H (0.00-0.90) mg/dL Total Protein 7.4 (6.4-8.2) g/dL Albumin 2.7 L (3.4-5.0) g/dL Globulin 4.7 H (2.6-4.0) g/dL Albumin/Globulin Ratio 0.6 L (0.9-1.6) Lipase 66 L (73-393) U/L Urine Color Urine Appearance Urine pH (5.0-8.0) Ur Specific [place] (1.001-1.035) Urine Protein (NEGATIVE) mg/dL Urine Glucose (UA) (NEGATIVE) mg/dL Urine Ketones (NEGATIVE) mg/dL Urine Occult Blood (NEGATIVE) Urine Nitrite (NEGATIVE) Urine Bilirubin (NEGATIVE) Urine Urobilinogen (<2.0) EU/dL Ur Leukocyte Esterase (NEGATIVE) Urine RBC (0-2/HPF) Urine WBC (0-5/HPF) Ur Epithelial Cells (NONE-FEW) Urine Bacteria (NEGATIVE) Urine Mucus (NONE-MOD) Meds: Medications Discontinued Medications Generic Name Dose Route Start Last Admin Trade Name Freq PRN Reason Stop Dose Admin Acetaminophen 650 mg 05/05/20 21:53 05/05/20 22:26 Tylenol PO 05/05/20 21:54 650 mg NOW ONE Administration Sodium Chloride 1,000 mls @ 999 mls/hr 05/05/20 20:13 05/05/20 20:40 Normal Saline IV 05/05/20 21:13 999 mls/hr .Bolus ONE Administration Ceftriaxone Sodium 1 gm/ 50 mls @ 200 mls/hr 05/05/20 21:54 05/05/20 22:26 Sodium Chloride IV 05/05/20 22:08 Not Given ONETIME ONE Azithromycin 500 mg/ Sodium 250 mls @ 250 mls/hr 05/05/20 22:00 05/05/20 23:10 Chloride IV 250 mls/hr ONETIME SYLVESTER Administration Ceftriaxone Sodium/Dextrose 1 50 mls @ 100 mls/hr 05/05/20 22:15 05/05/20 22:26 gm/ Premix IV 05/05/20 22:44 100 mls/hr ONETIME ONE Administration Ibuprofen 600 mg 05/05/20 21:53 05/05/20 22:26 Motrin PO 05/05/20 21:54 600 mg ONETIME ONE Administration Ondansetron HCl 4 mg 05/05/20 21:54 05/05/20 22:26 Zofran IVPUSH 05/05/20 21:55 4 mg ONETIME ONE Administration Ondansetron HCl 4 mg 05/05/20 23:20 05/05/20 23:31 Zofran IVPUSH 05/05/20 23:21 4 mg ONETIME ONE Administration Ondansetron HCl 4 mg 05/05/20 23:21 05/05/20 23:26 Zofran IVPUSH 05/05/20 23:22 Not Given ONETIME ONE Sodium Chloride 10 ml 05/05/20 20:13 Saline Flush FLUSH ASDIRECTED PRN Keep Vein Open Sodium Chloride 2.5 ml 05/05/20 20:13 Saline Flush FLUSH ASDIRECTED PRN Keep Vein Open Departure - Departure Time of Disposition: 21:43 Disposition: DC/Tfer to [facility] 02 Condition: Fair Clinical Impression: Coronavirus infection, Hypoxemia, Nausea & vomiting - Discharge Information Referrals: PCP,None [Primary Care Provider] - Forms: ED Department Discharge Sepsis Event Note (ED) - Evaluation Sepsis Screening Result: Possible Sepsis Risk - Focused Exam Vital Signs: Vital Signs Temp Pulse Resp BP Pulse Ox Pulse Ox 05/06/20 01:00 81 24 H 146/78 H 97 05/05/20 23:33 98.1 F 90 24 H 127/69 97 05/05/20 23:11 98.1 F 94 24 H 146/81 H 95 05/05/20 21:38 98.9 F 94 24 H 154/72 H 96 05/05/20 21:00 95 05/05/20 19:54 101.4 F H 104 H 30 H 219/108 H 93 L - My Orders Last 24 Hours: My Active Orders 05/05/20 20:13 Blood Culture x2 Reflex Set [OM.PC] Stat Pulse Oximetry Continuous Monitoring [OM.PC] Routine Saline Lock Insert [OM.PC] Stat Severe Sepsis Onset Time [OM.PC] Stat 05/05/20 20:35 CULTURE BLOOD [BC] Stat 05/05/20 21:05 CULTURE BLOOD [BC] Stat - Assessment/Plan Last 24 Hours: My Active Orders 05/05/20 20:13 Blood Culture x2 Reflex Set [OM.PC] Stat Pulse Oximetry Continuous Monitoring [OM.PC] Routine Saline Lock Insert [OM.PC] Stat Severe Sepsis Onset Time [OM.PC] Stat 05/05/20 20:35 CULTURE BLOOD [BC] Stat 05/05/20 21:05 CULTURE BLOOD [BC] Stat
== END 2020-05-06 01:20 ==
LOC: MW.ED 19:40
DX: U07.1 COVID-19 (principal); R11.2 Nausea with vomiting, unspecified; R09.02 Hypoxemia; I10 Essential (primary) hypertension; E11.9 Type 2 diabetes mellitus without complications; R56.9 Unspecified convulsions; Z79.84 Long term (current) use of oral hypoglycemic drugs; Z79.899 Other long term (current) drug therapy
CPT/HCPCS: 36415; 36600; 71045; 80053; 81001; 82803; 83605; 83690; 84484; 85025; 86140; 87040; 96361; 96365; 96367; 96375; 96376; 99285; A9270; J0456; J0696; J2405; J7030; J7050; 99284

== ENCOUNTER 2021-07-02 21:15 | Emergency (ER) | payer MEDICAID ==
--- NOTE | 2021-07-03 01:57 | EDM.PDOC ---
ED HPI GENERAL MEDICAL PROBLEM - General Stated Complaint: INFECTION ON TOE Time Seen by Provider: 07/03/21 01:00 - History of Present Illness INITIAL COMMENTS - FREE TEXT/NARRATIVE: Patient signed out AMA prior to my assessment. - Related Data Allergies Allergy/AdvReac Type Severity Reaction Status Date / Time No Known Allergies Allergy Verified 05/05/20 20:04 Home Meds: Home Meds Ibuprofen [Motrin] 600 mg PO Q8H PRN 7 Days #21 tab 10/17/19 [Rx] levETIRAcetam [Keppra] 500 mg PO BID 10/17/19 [History] metFORMIN [Glucophage XR] 1,000 mg PO BID 10/17/19 [History] Past Medical History HEENT History: Reports: None Cardiovascular History: Reports: None Respiratory History: Reports: None Gastrointestinal History: Reports: None Genitourinary History: Reports: None Musculoskeletal History: Reports: None Neurological History: Reports: Other (See Below) Other Neuro History: possible seizure Psychiatric History: Reports: None Endocrine/Metabolic History: Reports: Diabetes, Type II Hematologic History: Reports: None Immunologic History: Reports: None Oncologic (Cancer) History: Reports: None Dermatologic History: Reports: Psoriasis - Infectious Disease History Infectious Disease History: Reports: None - Past Surgical History Head Surgeries/Procedures: Reports: None Cardiovascular Surgical History: Reports: None Respiratory Surgical History: Reports: None GI Surgical History: Reports: None Male Surgical History: Reports: None Endocrine Surgical History: Reports: None Neurological Surgical History: Reports: None Musculoskeletal Surgical History: Reports: Other (See Below) Other Musculoskeletal Surgeries/Procedures:: right hand surgery Oncologic Surgical History: Reports: None Dermatological Surgical History: Reports: None Social & Family History - Family History Family Medical History: No Pertinent Family History - Caffeine Use Caffeine Use: Reports: None ED ROS GENERAL - Review of Systems Review Of Systems: Unable To Obtain Reason Not Obtained: Signed out AMA prior to my assessment ED EXAM, GENERAL - Physical Exam Exam: Not Obtained (Patient signed out prior to my assessment) Departure - Departure Time of Disposition: 01:56 Disposition: Against Medical Advice 07 Clinical Impression: Left against medical advice - Discharge Information Referrals: PCP,None [Primary Care Provider] -
== END 2021-07-03 01:54 | disposition left against medical advice (07) ==
LOC: MW.ED 21:15
DX: Z53.21 Procedure and treatment not carried out due to patient leaving prior to being seen by health care provider (principal)

== ENCOUNTER 2021-09-04 13:46 | Emergency (ER) | payer MEDICARE, MEDICAID ==
[2021-09-04] MEDS ORDERED: Ketorolac 60 MG/2 ML SDV IM ONE (13:53)
--- NOTE | 2021-09-04 13:58 | EDM.PDOC ---
ED HPI GENERAL MEDICAL PROBLEM - General Chief Complaint: Upper Extremity Injury/Pain Stated Complaint: HAND PAIN Time Seen by Provider: 09/04/21 13:49 Source of Information: Reports: Patient History Limitations: Reports: No Limitations - History of Present Illness INITIAL COMMENTS - FREE TEXT/NARRATIVE: HISTORY AND PHYSICAL: History of present illness: Patient is a 60-year-old male who presents to the emergency room with complaints of right fifth digit pain. He states for 5 days ago he pinched his finger in something and it became very swollen. 2 days ago he pierced the swollen area and drained blood from the site. States the area is still uncomfortable. He states he does have problems with the affected hand as he had a surgery "go bad". It looks like he had surgery on the right third digit as there is a linear scar at the base of the finger going into the palmar surface. Has difficulty with flexion and extension of that finger (appears to be trigger finger procedure - normal variance). Patient denies any fever, chills, headache, change in vision, syncope or near syncope. Denies any chest pain, back pain, shortness of breath or cough. Denies any abdominal pain, nausea, vomiting, diarrhea, constipation or dysuria. Has not noted any blood in urine or stool. Patient has been eating and drinking appropriately. No recent travel or sick contacts. Review of systems: As per history of present illness and below otherwise all systems reviewed and negative. Past medical history: As per history of present illness and as reviewed below otherwise noncontri butory. Surgical history: As per history of present illness and as reviewed below otherwise noncontributory. Social history: See social history for further information Family history: As per history of present illness and as reviewed below otherwise noncontributory. Physical exam: General: Well developed and well nourished. Alert and orientated x 3. Nontoxic in appearance and in no acute distress. Vital signs are stable and have been reviewed by me. Nursing notes were reviewed. HEENT: Atraumatic, normocephalic, pupils equal and reactive bilaterally, negative for conjunctival pallor or scleral icterus, mucous membranes moist, TMs normal bilaterally, throat clear, neck supple, nontender, trachea midline. No drooling or trismus noted. No meningeal signs. No hot potato voice noted. Lungs: Clear to auscultation bilaterally. No wheezes, rales, or rhonchi. Chest nontender. Normal work of breathing, no accessory muscles used. Heart: S1S2, regular rate and rhythm without overt murmur, gallops, or rubs. No JVD. No peripheral edema Abdomen: Soft, nondistended, nontender. Skin: Scar noted to right palmar/3rd digit. Remaining skin is intact, warm, dry. No lesions or rashes noted. Hematologic: No petechiae or purpra. Mucosa appropriate color and normal nail bed color and refill. Extremities: Pain with palpation along the right fifth digit. He moves all extremities per self without difficulty or deficits, strong radial pulses. Cap refill less than 2 seconds. Negative for cords or calf pain. +CMS. Neurovascular unremarkable. Neuro: Awake, alert, oriented. Cranial nerves II through XII unremarkable. Cerebellum unremarkable. Motor and sensory unremarkable throughout. Exam nonfocal. Psychiatric: Mood and affect are appropriate. Normal thought process. Answering questions appropriately. Please note that the patient was seen and evaluated during the 2019 SARS-CoV-2 novel coronavirus pandemic period. Community viral transmission is ongoing at time of this encounter and the emergency department is operating under pandemic response procedures. Medical Decision Making: Patient is a 60-year-old male who presents to the emergency room with complaints of acute on chronic hand pain. Patient states he has chronic hand pain in the right hand due to a surgery he had for trigger finger release. A few days ago he pinched his fifth digit which caused some swelling. He states he took something sharp and punctured the swollen area to release blood. He states this did alleviate pressure and pain although he still has a dull ache of the finger. Patient's skin is intact, no redness or soft tissue swelling noted. He is tender with palpation of the entirety of the finger. We will obtain an x-ray. X-ray shows no acute fracture. I have talked with the patient about today's findings, in addition to providing specific details for plan of care. Reassessment at the time of disposition demonstrates that the patient is in no acute distress. The patient is stable for discharge, counseling was provided and we discussed in great detail signs and symptoms that would prompt them to return to the Emergency Department. Medication, follow up and supportive care measures were reviewed and discussed. Voices understanding and is agreeable to plan of care. Denies any further questions or concerns at this time. Diagnostics: Finger x-ray Therapeutics: Toradol IM Prescription: Ibuprofen Impression: Finger injury Plan: 1. You were evaluated today on an emergent basis. Your x-ray shows no fracture. Rest, ice, elevate the extremity as able. 2. You can alternate Tylenol and ibuprofen as needed for pain and fever management. 3. We encourage you to follow up with your primary care provider and/or orthopedics in the next few days for re-evaluation and further care/management. 4. If your symptoms should worsen, new symptoms develop or any of the signs and symptoms we discussed should arise please return to the emergency room or call 911 (if needed). Definitive disposition and diagnosis as appropriate pending reevaluation and review of above. Right 5th digit Pain Score (Numeric/FACES): 3 - Related Data Allergies Allergy/AdvReac Type Severity Reaction Status Date / Time No Known Allergies Allergy Verified 09/04/21 13:58 Home Meds: Home Meds Ibuprofen [Motrin] 600 mg PO Q8H PRN 7 Days #21 tab 10/17/19 [Rx] levETIRAcetam [Keppra] 500 mg PO BID 10/17/19 [History] metFORMIN [Glucophage XR] 1,000 mg PO BID 10/17/19 [History] Ibuprofen [Motrin] 800 mg PO BIDM PRN #30 tab 09/04/21 [Rx] Insulin Detemir [Levemir Flextouch] 09/04/21 [History] Past Medical History HEENT History: Reports: None Cardiovascular History: Reports: None Respiratory History: Reports: None Gastrointestinal History: Reports: None Genitourinary History: Reports: None Musculoskeletal History: Reports: None Neurological History: Reports: Other (See Below) Other Neuro History: possible seizure Psychiatric History: Reports: None Endocrine/Metabolic History: Reports: Diabetes, Type II Hematologic History: Reports: None Immunologic History: Reports: None Oncologic (Cancer) History: Reports: None Dermatologic History: Reports: Psoriasis - Infectious Disease History Infectious Disease History: Reports: None - Past Surgical History Head Surgeries/Procedures: Reports: None Cardiovascular Surgical History: Reports: None Respiratory Surgical History: Reports: None GI Surgical History: Reports: None Male Surgical History: Reports: None Endocrine Surgical History: Reports: None Neurological Surgical History: Reports: None Musculoskeletal Surgical History: Reports: Other (See Below) Other Musculoskeletal Surgeries/Procedures:: right hand surgery Oncologic Surgical History: Reports: None Dermatological Surgical History: Reports: None Social & Family History - Family History Family Medical History: No Pertinent Family History - Caffeine Use Caffeine Use: Reports: None Review of Systems - Review of Systems Review Of Systems: Comprehensive ROS is negative, except as noted in HPI. ED EXAM, GENERAL - Physical Exam Exam: See Below (See dictation) Course - Vital Signs Last Recorded V/S: Last Vital Signs Temp 97.0 F 09/04/21 13:54 Pulse 97 09/04/21 13:54 Resp 16 09/04/21 13:54 BP 148/89 H 09/04/21 13:54 Pulse Ox 100 09/04/21 13:54 - Orders/Labs/Meds Meds: Medications Discontinued Medications Generic Name Dose Route Start Last Admin Trade Name Freq PRN Reason Stop Dose Admin Ketorolac Tromethamine 60 mg 09/04/21 13:53 09/04/21 13:59 Ketorolac 60 Mg/2 Ml Sdv IM 09/04/21 13:54 60 mg ONETIME ONE Administration Departure - Departure Time of Disposition: 14:44 Disposition: Home, Self-Care 01 Clinical Impression: Injury of finger Qualifiers: Encounter type: initial encounter Laterality: right Qualified Code(s): S69.91XA - Unspecified injury of right wrist, hand and finger(s), initial encounter - Discharge Information Prescriptions: Ibuprofen [Motrin] 800 mg PO BIDM PRN #30 tab PRN Reason: Pain Instructions: Crush Injury of the Hand, [id number] Forms: ED Department Discharge Additional Instructions: The following information is given to patients seen in the emergency department who are being discharged to home. This information is to outline your options for follow-up care. We provide all patients seen in our emergency department with a follow-up referral. The need for follow-up, as well as the timing and circumstances, are variable depending upon the specifics of your emergency department visit. If you don't have a primary care physician on staff, we will provide you with a referral. We always advise you to contact your personal physician following an emergency department visit to inform them of the circumstance of the visit and for follow-up with them and/or the need for any referrals to a consulting specialist. The emergency department will also refer you to a specialist when appropriate. This referral assures that you have the opportunity for follow-up care with a specialist. All of these measure are taken in an effort to provide you with optimal care, which includes your follow-up. Under all circumstances we always encourage you to contact your private physician who remains a resource for coordinating your care. When calling for follow-up care, please make the office aware that this follow-up is from your recent emergency room visit. If for any reason you are refused follow-up, please contact the [facility] Emergency Department at and asked to speak to the emergency department charge nurse. [facility] [address] [place] [id number] [facility] [address] [place] [id number] Thank you for choosing the [facility] emergency department in [place] for your medical needs today. It was a pleasure caring for you. Today you were seen in the emergency department for finger injury 1. You were evaluated today on an emergent basis. Your x-ray shows no fracture. Rest, ice, elevate the extremity as able. 2. You can alternate Tylenol and ibuprofen as needed for pain and fever management. 3. We encourage you to follow up with your primary care provider and/or orthopedics in the next few days for re-evaluation and further care/management. 4. If your symptoms should worsen, new symptoms develop or any of the signs and symptoms we discussed should arise please return to the emergency room or call 911 (if needed). Sepsis Event Note (ED) - Focused Exam Vital Signs: Vital Signs Temp Pulse Resp BP Pulse Ox 09/04/21 13:54 97.0 F 97 16 148/89 H 100
--- NOTE | 2021-09-04 14:45 | CR ---
HISTORY: Crush injury of the 5th digit. TECHNIQUE: Three views of the 5th digit of the right hand. COMPARISON: 07/19/2019. FINDINGS: No acute fracture. Joint spaces maintained. No radiopaque foreign body or soft tissue gas. IMPRESSION: No acute fracture. Dictated by Dorian Silva MD @ 09/04/2021 2:42:57 PM (Electronically Signed)
== END 2021-09-04 14:50 | disposition home or self-care (01) ==
LOC: MW.ED 13:46
DX: S69.91XA Unspecified injury of right wrist, hand and finger(s), initial encounter (principal); E11.9 Type 2 diabetes mellitus without complications; Z79.4 Long term (current) use of insulin; W23.0XXA Caught, crushed, jammed, or pinched between moving objects, initial encounter
CPT/HCPCS: 73140; 96372; 99283; J1885

== ENCOUNTER 2021-12-24 21:47 | Emergency (ER) | payer MEDICARE, MEDICAID ==
[2021-12-24] MEDS ORDERED: Sodium Chloride 0.9% 10 ML Syringe FLUSH PRN (22:07)
[2021-12-24] MEDS ORDERED: Ondansetron 4 MG/2 ML SDV IVPUSH ONE (22:07)
[2021-12-24] MEDS ORDERED: Sodium Chloride 0.9% 2.5 ML Syringe FLUSH PRN (22:07)
[2021-12-24] MEDS ORDERED: Sodium Chloride 0.9% 1,000 ML IV ONE (22:07)
[2021-12-24 22:50] LABS: BLOOD UREA NITROGEN,BUN 17 mg/dL (7.0-18.0); CARBON DIOXIDE,CO2 24.1 mmol/L (21.0-32.0); CHLORIDE,CL 99 mmol/L (98-107); GLUCOSE RANDOM 348 mg/dL (74-106); LIPASE 189 U/L (73-393); POTASSIUM,K 3.8 mmol/L (3.5-5.1); SODIUM,NA 135 mmol/L (136-148)
[2021-12-24 23:03] LABS: CORONAVIRUS COVID-19 NAA NEGATIVE (NEGATIVE); INFLUENZA A NAA NEGATIVE (NEGATIVE); INFLUENZA B NAA NEGATIVE (NEGATIVE)
[2021-12-24] MEDS ORDERED: Nitroglycerin 2% Oint 1 GM UD Packet TOP ONE (23:12)
[2021-12-24] MEDS ORDERED: Enoxaparin 100 MG/1 ML Syringe SUBCUT STA (23:12)
[2021-12-24] MEDS ORDERED: Aspirin 81 MG Tab.Chew PO ONE (23:12)
[2021-12-24] MEDS ORDERED: Iopamidol 755 MG/ML 500 ML Multipack Bottle IVPUSH ONE (23:25)
[2021-12-25] MEDS ORDERED: Morphine 2 MG/ML SYRINGE IVPUSH ONE ×2 (00:14)
[2021-12-25] MEDS: Nitroglycerin 0.4 MG Tab.SL SL PRN ×3 (00:20→00:31)
== END 2021-12-25 02:00 ==
LOC: MW.ED 21:47
DX: I21.4 Non-ST elevation (NSTEMI) myocardial infarction (principal); I10 Essential (primary) hypertension; E11.9 Type 2 diabetes mellitus without complications; Z79.4 Long term (current) use of insulin; Z20.822 Contact with and (suspected) exposure to COVID-19
CPT/HCPCS: 0240U; 36415; 71275; 80053; 81003; 83690; 83880; 84484; 85025; 93005; 96372; 96374; 96375; 99285; A9270; J1650; J2270; J2405; J3490; J7030; Q9967; 93010; 99291

== ENCOUNTER 2022-02-10 11:00 | Observation (INO) | payer MEDICARE, MEDICAID ==
[2022-02-10 13:14] LABS: BLOOD UREA NITROGEN,BUN 21 mg/dL (7.0-18.0); CARBON DIOXIDE,CO2 23.1 mmol/L (21.0-32.0); CHLORIDE,CL 94 mmol/L (98-107); GLUCOSE RANDOM 282 mg/dL (74-106); SODIUM,NA 127 mmol/L (136-148)
[2022-02-10] MEDS ORDERED: Lactated Ringers 1,000 ML IV STA ×2 (13:30→16:56)
[2022-02-10] MEDS ORDERED: Iopamidol 755 MG/ML 500 ML Multipack Bottle IVPUSH STA (13:58)
[2022-02-10] MEDS ORDERED: 50% Dextrose in Water 50 ML Syringe IVPUSH PRN ×2 (19:31→22:40)
[2022-02-10] MEDS ORDERED: Insulin Detemir 100 Units/ML 3 ML Pen SUBCUT ONE (19:31)
[2022-02-10] MEDS ORDERED: Ondansetron 4 MG Tab.DIS PO PRN (19:31)
[2022-02-10] MEDS ORDERED: Glucagon,Human Recombinant 1 MG Vial IM PRN ×2 (19:31→22:40)
[2022-02-10] MEDS ORDERED: Acetaminophen 650 MG Supp RECTAL PRN (19:31)
[2022-02-10] MEDS ORDERED: Insulin Detemir 100 Units/ML 3 ML Pen SUBCUT SCH (22:45)
[2022-02-11] MEDS: Insulin Aspart 100 Units/ML 3 ML Pen SUBCUT SCH ×3 (06:56→17:55)
[2022-02-11 07:15] LABS: BLOOD UREA NITROGEN,BUN 15 mg/dL (7.0-18.0); CARBON DIOXIDE,CO2 25.1 mmol/L (21.0-32.0); CHLORIDE,CL 95 mmol/L (98-107); GLUCOSE RANDOM 136 mg/dL (74-106); POTASSIUM,K 3.9 mmol/L (3.5-5.1); SODIUM,NA 129 mmol/L (136-148)
[2022-02-11] MEDS: Ibuprofen 200 MG Tab PO PRN ×2 (08:20→17:55)
[2022-02-11] MEDS ORDERED: Metoprolol Succinate 25 MG Tab.ER PO SCH (09:00)
[2022-02-11] MEDS ORDERED: Lisinopril 10 MG Tab PO SCH (09:00)
[2022-02-11] MEDS ORDERED: Amiodarone 200 MG Tab PO SCH (09:00)
[2022-02-11] MEDS ORDERED: 50% Dextrose in Water 50 ML Syringe IVPUSH PRN (10:51)
[2022-02-11] MEDS ORDERED: Glucagon,Human Recombinant 1 MG Vial IM PRN (10:51)
[2022-02-11] MEDS ORDERED: Aspirin 81 MG Tab.EC PO SCH (11:00)
[2022-02-11] MEDS ORDERED: atorvaSTATin 40 MG Tab PO SCH (21:00)
[2022-02-11] MEDS ORDERED: Insulin Detemir 100 Units/ML 3 ML Pen SUBCUT SCH (21:00)
[2022-02-11] MEDS ORDERED: Amitriptyline 10 MG Tab PO SCH (21:00)
[2022-02-12] MEDS ORDERED: amLODIPine 5 MG Tab PO SCH (09:00)
[2022-02-12] MEDS ORDERED: Lisinopril 10 MG Tab PO SCH (09:00)
== END 2022-02-11 18:45 | disposition home health service (06) ==
LOC: MW.ED 11:00 → MW.MS 15:46
PROVIDERS: ADMIT Internal Medicine; ATTEND Internal Medicine
DX: R07.89 Other chest pain (principal); E11.65 Type 2 diabetes mellitus with hyperglycemia; E86.0 Dehydration; I25.10 Atherosclerotic heart disease of native coronary artery without angina pectoris; I10 Essential (primary) hypertension; E78.5 Hyperlipidemia, unspecified; E87.1 Hypo-osmolality and hyponatremia; Z95.1 Presence of aortocoronary bypass graft; Z79.84 Long term (current) use of oral hypoglycemic drugs; Z79.82 Long term (current) use of aspirin; Z79.4 Long term (current) use of insulin; Z79.899 Other long term (current) drug therapy; Z20.822 Contact with and (suspected) exposure to COVID-19
CPT/HCPCS: 36415; 71045; 71275; 80053; 82947; 83735; 83880; 84100; 84484; 85025; 85027; 85379; 85610; 93005; 97110; 97162; 99285; A9270; J1815; J7120; Q9967; U0002; G0378

== ENCOUNTER 2022-02-16 01:21 | Emergency (ER) | payer MEDICARE, MEDICAID ==
[2022-02-16] MEDS ORDERED: Morphine 4 MG/ML VIAL IVPUSH ONE (02:21)
[2022-02-16 02:59] LABS: BLOOD UREA NITROGEN,BUN 14 mg/dL (7.0-18.0); CARBON DIOXIDE,CO2 25.4 mmol/L (21.0-32.0); CHLORIDE,CL 97 mmol/L (98-107); GLUCOSE RANDOM 143 mg/dL (74-106); POTASSIUM,K 4.2 mmol/L (3.5-5.1); SODIUM,NA 133 mmol/L (136-148)
[2022-02-16] MEDS ORDERED: Temazepam 15 MG Cap PO STA (03:23)
== END 2022-02-16 03:32 | disposition home or self-care (01) ==
LOC: MW.ED 01:21
DX: R07.89 Other chest pain (principal); G47.00 Insomnia, unspecified; I10 Essential (primary) hypertension; E11.9 Type 2 diabetes mellitus without complications; Z86.16 Personal history of COVID-19; Z79.82 Long term (current) use of aspirin; Z79.4 Long term (current) use of insulin; Z79.84 Long term (current) use of oral hypoglycemic drugs
CPT/HCPCS: 36415; 71045; 80053; 84484; 85025; 93005; 96374; 99285; A9270; J2270; 93010; 99284

== ENCOUNTER 2022-05-13 02:27 | Emergency (ER) | payer MEDICARE, MEDICAID ==
[2022-05-13] MEDS ORDERED: Metoclopramide 10 MG/2 ML SDV IVPUSH ONE (02:44)
[2022-05-13] MEDS ORDERED: diphenhydrAMINE 50 MG/ML SDV IVPUSH ONE (02:44)
== END 2022-05-13 03:49 | disposition home or self-care (01) ==
LOC: MW.ED 02:27
DX: R51.9 Headache, unspecified (principal); I10 Essential (primary) hypertension; E11.9 Type 2 diabetes mellitus without complications; I25.10 Atherosclerotic heart disease of native coronary artery without angina pectoris; Z86.16 Personal history of COVID-19; Z95.1 Presence of aortocoronary bypass graft; Z79.4 Long term (current) use of insulin; Z79.82 Long term (current) use of aspirin; Z79.899 Other long term (current) drug therapy
CPT/HCPCS: 70450; 96374; 96375; 99284; J1200; J2765; 99283

== ENCOUNTER 2023-06-03 09:44 | Emergency (ER) | payer MEDICARE, MEDICAID ==
[2023-06-03] MEDS ORDERED: Sodium Chloride 0.9% 1,000 ML IV ONE (09:55)
[2023-06-03] MEDS ORDERED: Sodium Chloride 0.9% 2.5 ML Syringe FLUSH PRN (10:00)
[2023-06-03] MEDS ORDERED: Sodium Chloride 0.9% 10 ML Syringe FLUSH PRN (10:00)
[2023-06-03 10:13] LABS: BASOPHILS PERCENT AUTO 0.5 % (0.0-1.5); EOSINOPHILS ABSOLUTE AUTO 0.2 K/uL (0.0-0.7); EOSINOPHILS PERCENT AUTO 2.7 % (0.0-7.0); HEMATOCRIT 44.9 % (38.0-50.0); HEMOGLOBIN 15.6 g/dL (13.0-17.0); LYMPHOCYTES ABSOLUTE AUTO 1.7 K/uL (0.6-2.4); LYMPHOCYTES PERCENT AUTO 22.4 % (16.0-40.0); MEAN CORPUSCULAR HEMOGLOBIN 29.7 pg (27.0-32.0); MEAN CORPUSCULAR HGB CONC 34.7 g/dL (31.0-37.0); MEAN CORPUSCULAR VOLUME 85.5 fL (80.0-98.0); MONOCYTES ABSOLUTE AUTO 0.9 K/uL (0.0-0.8); MONOCYTES PERCENT AUTO 11.7 % (0.0-15.0); NEUTROPHILS ABSOLUTE AUTO 4.7 K/uL (1.4-5.7); NEUTROPHILS PERCENT AUTO 62.7 % (48.0-80.0); PLATELET COUNT,PLT 225 K/uL (150-400); RED BLOOD CELL COUNT 5.25 M/uL (4.50-5.90); WHITE BLOOD CELL COUNT,WBC 7.49 K/uL (4.0-11.0)
[2023-06-03 10:22] LABS: INR 1.22 (0.86-1.11); PTT,PARTIAL THROMBOPLSTIN TIME 36.7 SEC (23.9-30.7)
[2023-06-03 10:34] LABS: A/G RATIO 0.9 (0.9-1.6); ALBUMIN 3.8 g/dL (3.4-5.0); BILIRUBIN TOTAL 0.7 mg/dL (0.2-1.0); CALCIUM 9.1 mg/dL (8.5-10.1); CARBON DIOXIDE,CO2 31.3 mmol/L (21.0-32.0); CREATININE 1.1 mg/dL (0.8-1.3); EST CRCL DRUG DOSING (CG) 59.05 mL/min; POTASSIUM,K 4.4 mmol/L (3.5-5.1); PROTEIN TOTAL,TP 7.8 g/dL (6.4-8.2)
[2023-06-03 10:38] LABS: LACTIC ACID 1.1 mmol/L (0.4-2.0)
[2023-06-03 10:39] LABS: MAGNESIUM 1.7 mg/dL (1.8-2.4); PHOSPHORUS 3.3 mg/dL (2.6-4.7)
[2023-06-03] MEDS ORDERED: Meclizine 25 MG Tab PO ONE (11:24)
[2023-06-03] MEDS ORDERED: diphenhydrAMINE 50 MG/ML SDV IVPUSH ONE (11:26)
[2023-06-03] MEDS ORDERED: Metoclopramide 10 MG/2 ML SDV IVPUSH ONE (11:26)
[2023-06-03] MEDS ORDERED: Magnesium Sulfate/Water 2 GM in Premix Bag 1 BAG IV ONE (11:26)
[2023-06-03] MEDS ORDERED: Sodium Chloride 0.9% 500 ML IV SCH (11:30)
[2023-06-03] MEDS ORDERED: Ketorolac 30 MG/ML SDV IVPUSH ONE (13:07)
== END 2023-06-03 13:53 | disposition home or self-care (01) ==
LOC: MW.ED 09:44
DX: R42 Dizziness and giddiness (principal); R51.9 Headache, unspecified; M79.10 Myalgia, unspecified site; I10 Essential (primary) hypertension; E11.9 Type 2 diabetes mellitus without complications; Z86.16 Personal history of COVID-19; Z79.899 Other long term (current) drug therapy; Z79.82 Long term (current) use of aspirin; Z79.4 Long term (current) use of insulin
CPT/HCPCS: 36415; 70450; 80053; 82330; 82550; 82947; 83605; 83690; 83735; 84100; 84484; 85025; 85610; 85730; 93005; 96365; 96375; 99284; J1200; J1885; J2765; J3475; J3490; J7030; J7040; 93010

== ENCOUNTER 2024-02-05 03:17 | Inpatient (IN) | payer MEDICARE, MEDICAID ==
[2024-02-05] MEDS: Ketorolac 30 MG/ML SDV IVPUSH ONE (04:00)
[2024-02-05] MEDS: Sodium Chloride 0.9% 10 ML Syringe FLUSH PRN ×2 (04:01→04:02)
[2024-02-05] MEDS: Sodium Chloride 0.9% 2.5 ML Syringe FLUSH PRN ×2 (04:01→04:02)
[2024-02-05] MEDS: Sodium Chloride 0.9% 1,000 ML IV ONE ×3 (04:01→13:45)
[2024-02-05 04:02] LABS: BASOPHILS ABSOLUTE AUTO 0.09 K/uL (0.00-0.20); BASOPHILS PERCENT AUTO 0.7 % (0.0-1.0); EOSINOPHILS ABSOLUTE AUTO 0.36 K/uL (0.00-0.45); EOSINOPHILS PERCENT AUTO 2.6 % (0.0-6.0); HEMATOCRIT 46.8 % (42.0-52.0); HEMOGLOBIN 16.8 g/dL (14.0-18.0); IMMATURE GRAN ABSOLUTE AUTO 0.04 K/uL (0.00-0.05); IMMATURE GRAN PERCENT AUTO 0.3 % (0.0-0.4); LYMPHOCYTES ABSOLUTE AUTO 2.55 K/uL (1.00-4.80); LYMPHOCYTES PERCENT AUTO 18.5 % (24.0-44.0); MEAN CORPUSCULAR HEMOGLOBIN 30.3 pg (28.0-32.0); MEAN CORPUSCULAR HGB CONC 35.9 g/dL (32.0-36.0); MEAN CORPUSCULAR VOLUME 84.5 fL (83.0-99.0); MEAN PLATELET VOLUME 9.8 fL (9.4-12.4); MONOCYTES ABSOLUTE AUTO 1.23 K/uL (0.00-0.80); MONOCYTES PERCENT AUTO 8.9 % (0.0-8.0); NEUTROPHILS ABSOLUTE AUTO 9.51 K/uL (1.80-7.70); PLATELET COUNT,PLT 247 K/uL (150-400); RED BLOOD CELL COUNT 5.54 M/uL (4.52-5.90); WHITE BLOOD CELL COUNT,WBC 13.78 K/uL (3.9-11.3)
[2024-02-05 04:03] LABS: BASE EXCESS VENOUS 2.8 (-2.0-3.0); BICARBONATE,VENOUS 28 mEQ/mL (22-28); PCO2 VENOUS 45 mmHG (41-51); PH,VENOUS 7.41 (7.31-7.41)
[2024-02-05 04:05] LABS: PO2 VENOUS < 30 mmHG (35-45)
[2024-02-05 04:14] LABS: HEMOGLOBIN A1C 10.2 %
[2024-02-05 04:30] LABS: A/G RATIO 0.8 (0.9-1.6); ALBUMIN 3.5 g/dL (3.4-5.0); BILIRUBIN TOTAL 0.4 mg/dL (0.2-1.0); CALCIUM 9.2 mg/dL (8.5-10.1); CARBON DIOXIDE,CO2 25.8 mmol/L (21.0-32.0); CREATININE 1.1 mg/dL (0.8-1.3); EST CRCL DRUG DOSING (CG) 58.3 mL/min; MAGNESIUM 1.9 mg/dL (1.8-2.4); POTASSIUM,K 4.3 mmol/L (3.5-5.1); PROTEIN TOTAL,TP 7.7 g/dL (6.4-8.2)
[2024-02-05] MEDS: cefTRIAXone 2 GM in Sodium Chloride 0.9% 50 ML IV ONE (04:49)
[2024-02-05 05:14] LABS: LACTIC ACID 2.1 mmol/L (0.4-2.0)
[2024-02-05 05:59] LABS: APPEARANCE,URINE CLEAR; BILIRUBIN,URINE NEGATIVE (NEGATIVE); COLOR,URINE YELLOW; GLUCOSE,URINE >=1000 mg/dL (NEGATIVE); KETONES,URINE NEGATIVE (NEGATIVE); LEUKOCYTE ESTERASE,URINE NEGATIVE (NEGATIVE); NITRITE,URINE NEGATIVE (NEGATIVE); OCCULT BLOOD,URINE NEGATIVE (NEGATIVE); PROTEIN,URINE NEGATIVE (NEGATIVE); UROBILINOGEN,URINE 0.2 EU/dL (<2.0)
[2024-02-05] MEDS ORDERED: 50% Dextrose in Water 50 ML Syringe IVPUSH PRN ×2 (06:12→09:04)
[2024-02-05] MEDS ORDERED: Glucagon,Human Recombinant 1 MG Vial IM PRN ×2 (06:12→09:04)
[2024-02-05] MEDS ORDERED: Ondansetron 4 MG Tab.DIS PO PRN (07:52)
[2024-02-05] MEDS: Piperacillin/Tazobactam 4.5 GM in Sodium Chloride 0.9% 100 ML IV ONE (08:31)
[2024-02-05] MEDS: Insulin Aspart 100 Units/ML 3 ML Pen SUBCUT SCH (08:31)
[2024-02-05] MEDS: Acetaminophen 325 MG Tab PO PRN (08:49)
[2024-02-05] MEDS: Lisinopril 10 MG Tab PO SCH (08:52)
[2024-02-05] MEDS ORDERED: Non-Formulary Medication 1 Each (Amlodipine 10 MG Tablet) PO SCH (09:00)
[2024-02-05] MEDS: Insulin Aspart 100 Units/ML 3 ML Pen SUBCUT ONE (10:05)
[2024-02-05] MEDS: Piperacillin/Tazobactam 4.5 GM in Sodium Chloride 0.9% 100 ML IV SCH (13:34)
[2024-02-05] MEDS: Ketorolac 30 MG/ML SDV IVPUSH PRN (23:13)
[2024-02-06 08:22] LABS: BASOPHILS ABSOLUTE AUTO 0.06 K/uL (0.00-0.20); BASOPHILS PERCENT AUTO 0.7 % (0.0-1.0); EOSINOPHILS ABSOLUTE AUTO 0.27 K/uL (0.00-0.45); EOSINOPHILS PERCENT AUTO 3.3 % (0.0-6.0); HEMATOCRIT 43.5 % (42.0-52.0); HEMOGLOBIN 15.3 g/dL (14.0-18.0); IMMATURE GRAN ABSOLUTE AUTO 0.03 K/uL (0.00-0.05); IMMATURE GRAN PERCENT AUTO 0.4 % (0.0-0.4); LYMPHOCYTES ABSOLUTE AUTO 2.18 K/uL (1.00-4.80); LYMPHOCYTES PERCENT AUTO 26.5 % (24.0-44.0); MEAN CORPUSCULAR HEMOGLOBIN 29.8 pg (28.0-32.0); MEAN CORPUSCULAR HGB CONC 35.2 g/dL (32.0-36.0); MEAN CORPUSCULAR VOLUME 84.8 fL (83.0-99.0); MEAN PLATELET VOLUME 9.8 fL (9.4-12.4); MONOCYTES ABSOLUTE AUTO 0.74 K/uL (0.00-0.80); NEUTROPHILS ABSOLUTE AUTO 4.96 K/uL (1.80-7.70); NEUTROPHILS PERCENT AUTO 60.1 % (41.0-71.0); PLATELET COUNT,PLT 209 K/uL (150-400); RED BLOOD CELL COUNT 5.13 M/uL (4.52-5.90); WHITE BLOOD CELL COUNT,WBC 8.24 K/uL (3.9-11.3)
[2024-02-06 09:16] LABS: A/G RATIO 0.7 (0.9-1.6); ALBUMIN 2.8 g/dL (3.4-5.0); BILIRUBIN TOTAL 0.9 mg/dL (0.2-1.0); CALCIUM 8.6 mg/dL (8.5-10.1); CARBON DIOXIDE,CO2 23.2 mmol/L (21.0-32.0); CREATININE 0.9 mg/dL (0.8-1.3); EST CRCL DRUG DOSING (CG) 71.26 mL/min; POTASSIUM,K 4.3 mmol/L (3.5-5.1); PROTEIN TOTAL,TP 6.8 g/dL (6.4-8.2)
[2024-02-06] MEDS: Enoxaparin 40 MG/0.4 ML Syringe SUBCUT SCH (10:53)
[2024-02-06] MEDS: LORazepam 2 MG/ML SDV IVPUSH ONE (17:14)
[2024-02-06] MEDS: Gadobenate Dimeglumine 529 MG/ML 20 ML SDV IVPUSH STA (18:00)
[2024-02-07] MEDS: Piperacillin/Tazobactam 4.5 GM in Sodium Chloride 0.9% 100 ML IV SCH (04:38)
[2024-02-07 07:47] LABS: BASOPHILS ABSOLUTE AUTO 0.04 K/uL (0.00-0.20); BASOPHILS PERCENT AUTO 0.6 % (0.0-1.0); EOSINOPHILS ABSOLUTE AUTO 0.25 K/uL (0.00-0.45); EOSINOPHILS PERCENT AUTO 3.5 % (0.0-6.0); HEMATOCRIT 44.5 % (42.0-52.0); HEMOGLOBIN 15.6 g/dL (14.0-18.0); IMMATURE GRAN ABSOLUTE AUTO 0.03 K/uL (0.00-0.05); IMMATURE GRAN PERCENT AUTO 0.4 % (0.0-0.4); LYMPHOCYTES ABSOLUTE AUTO 2.11 K/uL (1.00-4.80); LYMPHOCYTES PERCENT AUTO 29.6 % (24.0-44.0); MEAN CORPUSCULAR HEMOGLOBIN 30.1 pg (28.0-32.0); MEAN CORPUSCULAR HGB CONC 35.1 g/dL (32.0-36.0); MEAN CORPUSCULAR VOLUME 85.7 fL (83.0-99.0); MEAN PLATELET VOLUME 9.9 fL (9.4-12.4); MONOCYTES ABSOLUTE AUTO 0.67 K/uL (0.00-0.80); MONOCYTES PERCENT AUTO 9.4 % (0.0-8.0); NEUTROPHILS ABSOLUTE AUTO 4.03 K/uL (1.80-7.70); NEUTROPHILS PERCENT AUTO 56.5 % (41.0-71.0); PLATELET COUNT,PLT 216 K/uL (150-400); RED BLOOD CELL COUNT 5.19 M/uL (4.52-5.90); WHITE BLOOD CELL COUNT,WBC 7.13 K/uL (3.9-11.3)
[2024-02-07 07:56] LABS: A/G RATIO 0.7 (0.9-1.6); ALBUMIN 2.7 g/dL (3.4-5.0); BILIRUBIN TOTAL 0.7 mg/dL (0.2-1.0); CALCIUM 8.3 mg/dL (8.5-10.1); CARBON DIOXIDE,CO2 27.9 mmol/L (21.0-32.0); CREATININE 0.9 mg/dL (0.8-1.3); EST CRCL DRUG DOSING (CG) 71.26 mL/min; POTASSIUM,K 4.4 mmol/L (3.5-5.1); PROTEIN TOTAL,TP 6.6 g/dL (6.4-8.2)
[2024-02-07] MEDS: Lisinopril 10 MG Tab PO SCH (08:05)
== END 2024-02-07 14:25 | disposition home or self-care (01) | DRG 623 ==
LOC: MW.ED 03:17 → MW.MS 05:26 → OBSVTOIN 09:07 → MW.MS 10:54
PROVIDERS: ADMIT Family Medicine; ATTEND Family Medicine
PROC: 0JBQ0ZZ Excision of Right Foot Subcutaneous Tissue and Fascia, Open Approach (ICD-10-PCS; principal; 2024-02-06)
DX: E11.621 Type 2 diabetes mellitus with foot ulcer (principal); L03.115 Cellulitis of right lower limb; E78.00 Pure hypercholesterolemia, unspecified; A41.9 Sepsis, unspecified organism; I10 Essential (primary) hypertension; R07.9 Chest pain, unspecified; I25.10 Atherosclerotic heart disease of native coronary artery without angina pectoris; L97.519 Non-pressure chronic ulcer of other part of right foot with unspecified severity; E11.65 Type 2 diabetes mellitus with hyperglycemia; Z79.4 Long term (current) use of insulin; Z79.82 Long term (current) use of aspirin; Z79.84 Long term (current) use of oral hypoglycemic drugs; Z79.899 Other long term (current) drug therapy; Z86.16 Personal history of COVID-19; Z98.890 Other specified postprocedural states
CPT/HCPCS: 36415; 71045; 71045-26; 73630-26-RT; 73630-RT; 73718-26-RT; 73718-RT; 80053; 80202; 81003; 82009; 82803; 82947; 83036; 83605; 83690; 83735; 84484; 85025; 87040; 87070; 87205; 93005; 93010; 96361; 96365; 96366; 96367; 96375; 96376; 99222; 99232; 99239; 99285-25; 99291; A9270-GY; G0378; J0696; J1650; J1815-GY; J1885; J2060; J2543; J3370; J3490; J7030; J7050

== ENCOUNTER 2024-02-26 17:36 | Emergency (ER) | payer MEDICARE, MEDICAID | END 2024-02-26 19:15 | disposition home or self-care (01) | LOC: MW.ED 17:36 | DX: S91.301A Unspecified open wound, right foot, initial encounter (principal); E11.9 Type 2 diabetes mellitus without complications; I10 Essential (primary) hypertension; Z86.16 Personal history of COVID-19; X58.XXXA Exposure to other specified factors, initial encounter | CPT/HCPCS: 73630-26-RT; 73630-RT; 99283 ==

== ENCOUNTER 2024-03-14 13:52 | Emergency (ER) | payer MEDICARE, MEDICAID | END 2024-03-14 15:45 | disposition left against medical advice (07) | LOC: MW.ED 13:52 | DX: Z53.21 Procedure and treatment not carried out due to patient leaving prior to being seen by health care provider (principal) ==

== ENCOUNTER 2024-03-20 00:34 | Emergency (ER) | payer MEDICARE, MEDICAID ==
[2024-03-20] MEDS: Acetaminophen 500 MG Tab PO ONE (01:13)
[2024-03-20 01:14] LABS: BASOPHILS ABSOLUTE AUTO 0.03 K/uL (0.00-0.20); BASOPHILS PERCENT AUTO 0.2 % (0.0-1.0); EOSINOPHILS ABSOLUTE AUTO 0.07 K/uL (0.00-0.45); EOSINOPHILS PERCENT AUTO 0.4 % (0.0-6.0); HEMATOCRIT 42.3 % (42.0-52.0); HEMOGLOBIN 14.8 g/dL (14.0-18.0); IMMATURE GRAN ABSOLUTE AUTO 0.07 K/uL (0.00-0.05); IMMATURE GRAN PERCENT AUTO 0.4 % (0.0-0.4); LYMPHOCYTES ABSOLUTE AUTO 1.62 K/uL (1.00-4.80); LYMPHOCYTES PERCENT AUTO 10.3 % (24.0-44.0); MEAN CORPUSCULAR HEMOGLOBIN 29.7 pg (28.0-32.0); MEAN CORPUSCULAR VOLUME 84.8 fL (83.0-99.0); MEAN PLATELET VOLUME 9.3 fL (9.4-12.4); MONOCYTES ABSOLUTE AUTO 1.21 K/uL (0.00-0.80); MONOCYTES PERCENT AUTO 7.7 % (0.0-8.0); NEUTROPHILS ABSOLUTE AUTO 12.66 K/uL (1.80-7.70); PLATELET COUNT,PLT 223 K/uL (150-400); RED BLOOD CELL COUNT 4.99 M/uL (4.52-5.90); WHITE BLOOD CELL COUNT,WBC 15.66 K/uL (3.9-11.3)
[2024-03-20] MEDS: Ketorolac 30 MG/ML SDV IVPUSH ONE (01:14)
[2024-03-20] MEDS: Sodium Chloride 0.9% 10 ML Syringe FLUSH PRN (01:14)
[2024-03-20] MEDS: Sodium Chloride 0.9% 2.5 ML Syringe FLUSH PRN (01:14)
[2024-03-20] MEDS: Piperacillin/Tazobactam 4.5 GM in Sodium Chloride 0.9% 100 ML IV ONE (01:32)
[2024-03-20 01:40] LABS: A/G RATIO 0.9 (0.9-1.6); ALBUMIN 3.3 g/dL (3.4-5.0); BILIRUBIN TOTAL 0.5 mg/dL (0.2-1.0); C-REACTIVE PROTEIN 1.98 mg/dL (<0.3); CALCIUM 8.9 mg/dL (8.5-10.1); CARBON DIOXIDE,CO2 28.5 mmol/L (21.0-32.0); CREATININE 0.9 mg/dL (0.8-1.3); EST CRCL DRUG DOSING (CG) 71.26 mL/min; POTASSIUM,K 4.3 mmol/L (3.5-5.1); PROTEIN TOTAL,TP 6.8 g/dL (6.4-8.2)
[2024-03-20] MEDS: fentaNYL 50 MCG/ML SDV IVPUSH ONE (02:05)
[2024-03-20] MEDS: Doxycycline 100 MG Cap PO ONE (02:50)
[2024-03-20] MEDS: Acetaminophen/HYDROcodone 325-5 MG Tab PO ONE (02:50)
== END 2024-03-20 03:08 | disposition home or self-care (01) ==
LOC: MW.ED 00:34
DX: E11.621 Type 2 diabetes mellitus with foot ulcer (principal); L97.519 Non-pressure chronic ulcer of other part of right foot with unspecified severity; I10 Essential (primary) hypertension
CPT/HCPCS: 36415; 73630; 80053; 82947; 85025; 85652; 86140; 87040; 96365; 96375; 99283; A9270; J1885; J2543; J3010; J3490; 99284

== ENCOUNTER 2024-09-14 11:26 | Emergency (ER) | payer MEDICAID, MEDICARE ==
[2024-09-14 12:09] LABS: BASOPHILS ABSOLUTE AUTO 0.05 K/uL (0.00-0.20); BASOPHILS PERCENT AUTO 0.6 % (0.0-1.0); EOSINOPHILS ABSOLUTE AUTO 0.18 K/uL (0.00-0.45); EOSINOPHILS PERCENT AUTO 2.3 % (0.0-6.0); HEMATOCRIT 43.6 % (42.0-52.0); HEMOGLOBIN 14.8 g/dL (14.0-18.0); IMMATURE GRAN ABSOLUTE AUTO 0.01 K/uL (0.00-0.05); IMMATURE GRAN PERCENT AUTO 0.1 % (0.0-0.4); LYMPHOCYTES PERCENT AUTO 22.8 % (24.0-44.0); MEAN CORPUSCULAR HEMOGLOBIN 27.8 pg (28.0-32.0); MEAN CORPUSCULAR HGB CONC 33.9 g/dL (32.0-36.0); MEAN CORPUSCULAR VOLUME 81.8 fL (83.0-99.0); MEAN PLATELET VOLUME 9.7 fL (9.4-12.4); MONOCYTES ABSOLUTE AUTO 0.74 K/uL (0.00-0.80); MONOCYTES PERCENT AUTO 9.4 % (0.0-8.0); NEUTROPHILS ABSOLUTE AUTO 5.13 K/uL (1.80-7.70); NEUTROPHILS PERCENT AUTO 64.8 % (41.0-71.0); PLATELET COUNT,PLT 217 K/uL (150-400); RED BLOOD CELL COUNT 5.33 M/uL (4.52-5.90); WHITE BLOOD CELL COUNT,WBC 7.91 K/uL (3.9-11.3)
[2024-09-14 12:32] LABS: ALBUMIN 3.7 g/dL (3.4-5.0); BILIRUBIN TOTAL 0.4 mg/dL (0.2-1.0); CALCIUM 9.1 mg/dL (8.5-10.1); CARBON DIOXIDE,CO2 29.1 mmol/L (21.0-32.0); CREATININE 1.1 mg/dL (0.8-1.3); EST CRCL DRUG DOSING (CG) 58.3 mL/min; POTASSIUM,K 4.5 mmol/L (3.5-5.1); PROTEIN TOTAL,TP 7.4 g/dL (6.4-8.2)
[2024-09-14] MEDS: Sodium Chloride 0.9% 1,000 ML IV STA (13:25)
[2024-09-14] MEDS: Acetaminophen 500 MG Tab PO ONE (13:35)
== END 2024-09-14 15:01 | disposition home or self-care (01) ==
LOC: MW.ED 11:26
DX: R07.9 Chest pain, unspecified (principal); M79.601 Pain in right arm; I10 Essential (primary) hypertension; E11.9 Type 2 diabetes mellitus without complications; Z79.4 Long term (current) use of insulin; Z79.84 Long term (current) use of oral hypoglycemic drugs; Z79.899 Other long term (current) drug therapy; Z75.8 Other problems related to medical facilities and other health care
CPT/HCPCS: 36415; 71046; 80053; 82947; 83605; 84484; 85025; 85379; 93005; 96360; 96361; 99285; A9270; J7030

== ENCOUNTER 2024-10-14 19:53 | Emergency (ER) | payer MEDICARE, MEDICAID ==
[2024-10-14 20:12] LABS: BASOPHILS ABSOLUTE AUTO 0.04 K/uL (0.00-0.20); BASOPHILS PERCENT AUTO 0.2 % (0.0-1.0); EOSINOPHILS ABSOLUTE AUTO 0.03 K/uL (0.00-0.45); EOSINOPHILS PERCENT AUTO 0.2 % (0.0-6.0); HEMATOCRIT 42.4 % (42.0-52.0); HEMOGLOBIN 14.6 g/dL (14.0-18.0); IMMATURE GRAN ABSOLUTE AUTO 0.08 K/uL (0.00-0.05); IMMATURE GRAN PERCENT AUTO 0.5 % (0.0-0.4); LYMPHOCYTES ABSOLUTE AUTO 0.86 K/uL (1.00-4.80); LYMPHOCYTES PERCENT AUTO 5.1 % (24.0-44.0); MEAN CORPUSCULAR HEMOGLOBIN 27.3 pg (28.0-32.0); MEAN CORPUSCULAR HGB CONC 34.4 g/dL (32.0-36.0); MEAN CORPUSCULAR VOLUME 79.3 fL (83.0-99.0); MEAN PLATELET VOLUME 9.2 fL (9.4-12.4); MONOCYTES ABSOLUTE AUTO 0.42 K/uL (0.00-0.80); MONOCYTES PERCENT AUTO 2.5 % (0.0-8.0); NEUTROPHILS ABSOLUTE AUTO 15.42 K/uL (1.80-7.70); NEUTROPHILS PERCENT AUTO 91.5 % (41.0-71.0); PLATELET COUNT,PLT 295 K/uL (150-400); RED BLOOD CELL COUNT 5.35 M/uL (4.52-5.90); WHITE BLOOD CELL COUNT,WBC 16.85 K/uL (3.9-11.3)
[2024-10-14] MEDS: Morphine 4 MG/ML Syringe IVPUSH ONE (20:16)
[2024-10-14] MEDS: Sodium Chloride 0.9% 1,000 ML IV SCH (20:16)
[2024-10-14 20:17] LABS: CARBON DIOXIDE,CO2 28.1 mmol/L (21.0-32.0); CREATININE 0.9 mg/dL (0.8-1.3); EST CRCL DRUG DOSING (CG) 70.35 mL/min; POTASSIUM,K 4.8 mmol/L (3.5-5.1)
[2024-10-14] MEDS: ceFAZolin 1 GM in Sodium Chloride 0.9% 50 ML IV ONE (20:17)
== END 2024-10-14 21:59 | disposition home or self-care (01) ==
LOC: MW.ED 19:53
DX: L03.115 Cellulitis of right lower limb (principal); I10 Essential (primary) hypertension; E78.00 Pure hypercholesterolemia, unspecified; E11.9 Type 2 diabetes mellitus without complications; Z79.4 Long term (current) use of insulin; Z79.899 Other long term (current) drug therapy
CPT/HCPCS: 36415; 73620; 80048; 82947; 85025; 96365; 96375; 99284; J0690; J2270; J3490; J7030; 99283

== ENCOUNTER 2024-10-16 13:55 | Emergency (ER) | payer MEDICAID, MEDICARE | END 2024-10-16 16:19 | disposition left against medical advice (07) | LOC: MW.ED 13:55 | DX: Z53.21 Procedure and treatment not carried out due to patient leaving prior to being seen by health care provider (principal) ==

== ENCOUNTER 2024-10-18 14:52 | Emergency (ER) | payer MEDICAID ==
[2024-10-18] MEDS: traMADol 50 MG Tab PO STA (17:36)
== END 2024-10-18 18:56 | disposition home or self-care (01) ==
LOC: MW.ED 14:52
DX: S91.301A Unspecified open wound, right foot, initial encounter (principal); L03.115 Cellulitis of right lower limb; I25.10 Atherosclerotic heart disease of native coronary artery without angina pectoris; I10 Essential (primary) hypertension; E11.9 Type 2 diabetes mellitus without complications; Z79.4 Long term (current) use of insulin; Z79.84 Long term (current) use of oral hypoglycemic drugs; Z79.899 Other long term (current) drug therapy; Z75.8 Other problems related to medical facilities and other health care; X58.XXXA Exposure to other specified factors, initial encounter
CPT/HCPCS: 99283; A9270